=== PATIENT | male | born 1940 | race Caucasian/White ===

== ENCOUNTER → 2016-10-28 | Outpatient (CLI) | payer OTHER, BC ==
[~2016-10-28] MED LIST: ACET-1311 PO; ALBINS/ INH; ALBU0.08 INH; BACI1OIN22 OPL; BCTO EXT; BISA1SUP4 RE; CFT250 PO; EYELPAD2 OPB; GENTEAL EYE DROPS OP; HYDR-5688 PO; KETO2SHA TOP; MENTPOW4 TOP; MICO2AER TOP; MICO2AER TP; MOML PO; MULT-506 PO; PANT40TA PO; PRED1SUS3 OPL; PRNJ PO; PROM25TA9 PO; SENSICARE TOP; SIME80CH PO; SIME80CH40 PO; SKIN PREP SPRAY TOP; SKINOIN27 TOP; SODI1.1P; SODIENE PR; SULF1SUS4 PO; [UNRECOGNIZED DRUG - CODE] OPB; [UNRECOGNIZED DRUG - OTHER] OPB; [UNRECOGNIZED DRUG - OTHER] OPL; [UNRECOGNIZED DRUG - OTHER] PO; [UNRECOGNIZED DRUG - OTHER] TOP
[2016-10-28 08:36] LABS: HEMATOCRIT 44.8 % (42-52); MEAN CELL VOLUME 85.3 fL (80-100); MEAN CORPUSCULAR HEMOGLOBIN 28.4 pg (25-34); MEAN CORPUSCULAR HGB CONC 33.3 g/dl (32-36); MEAN PLATELET VOLUME 10.6 fL (7.4-10.4); PLATELET COUNT 170 K/uL (130-400); RED BLOOD COUNT 5.25 M/uL (4.7-6.1); WHITE BLOOD COUNT 7.23 K/uL (4.8-10.8)
[2016-10-28 08:38] LABS: ALT/SGPT 30 U/L (12-78); BLOOD UREA NITROGEN 7 mg/dl (7-18); CALCIUM 8.5 mg/dl (8.5-10.1); CARBON DIOXIDE 23 mmol/L (21-32); CHLORIDE 104 mmol/L (98-107); CREATININE 0.54 mg/dl (0.60-1.40); GLUCOSE 96 mg/dl (70-99); POTASSIUM 3.8 mmol/L (3.5-5.1); SODIUM 136 mmol/L (136-145)
[2016-10-28 08:49] LABS: ALB/GLOB RATIO 0.9 (0.9-2); ALKALINE PHOSPHATASE 85 U/L (45-117); AST/SGOT 24 U/L (15-37)
== END ==
LOC: C.LABCC 08:11
PROVIDERS: ATTEND Internal Medicine
DX: R11.0 Nausea (principal)

== ENCOUNTER → 2016-10-31 | Outpatient (CLI) | payer OTHER, BC ==
[2016-10-31 08:24] LABS: AMYLASE 12 U/L (25-115)
== END ==
LOC: C.LABCC 07:57
PROVIDERS: ATTEND Internal Medicine
DX: R11.0 Nausea (principal)

== ENCOUNTER → 2016-11-07 | Outpatient (CLI) | payer OTHER, BC ==
[2016-11-07 08:03] LABS: HEMATOCRIT 35.7 % (42-52); MEAN CELL VOLUME 86.7 fL (80-100); MEAN CORPUSCULAR HEMOGLOBIN 28.6 pg (25-34); MEAN CORPUSCULAR HGB CONC 33.1 g/dl (32-36); MEAN PLATELET VOLUME 10.1 fL (7.4-10.4); PLATELET COUNT 182 K/uL (130-400); RED BLOOD COUNT 4.12 M/uL (4.7-6.1); WHITE BLOOD COUNT 8.55 K/uL (4.8-10.8)
[2016-11-07 08:12] LABS: BLOOD UREA NITROGEN 19 mg/dl (7-18); BUN/CREATININE RATIO 35.6 (10-20); CALCIUM 8.6 mg/dl (8.5-10.1); CARBON DIOXIDE 25 mmol/L (21-32); CHLORIDE 107 mmol/L (98-107); CREATININE 0.54 mg/dl (0.60-1.40); GLUCOSE 90 mg/dl (70-99); POTASSIUM 3.5 mmol/L (3.5-5.1); SODIUM 143 mmol/L (136-145)
== END ==
LOC: C.LABCC 07:46
PROVIDERS: ATTEND Internal Medicine
DX: K92.1 Melena (principal)

== ENCOUNTER 2016-11-11 21:59 | Inpatient (IN) | payer OTHER, BC ==
[~2016-11-11] VITALS: Ht 180.3 cm; Wt 93.8 kg
[~2016-11-11 21:59] MED LIST changes: -ACET-1311 PO; -CFT250 PO; -EYELPAD2 OPB; -MENTPOW4 TOP; -MICO2AER TOP; -MICO2AER TP; -PANT40TA PO; -PRNJ PO; -PROM25TA9 PO; -SIME80CH PO; -SIME80CH40 PO; -SODI1.1P; -SODIENE PR; -SULF1SUS4 PO; -[UNRECOGNIZED DRUG - CODE] OPB; -[UNRECOGNIZED DRUG - OTHER] OPL
[2016-11-11] MEDS ORDERED: SODIUM CHLORIDE 0.9% 1000ML 1,000 ML IV STA ×2 (22:15)
[2016-11-11] MEDS ORDERED: ONDANSETRON INJ 2 MG/ML 2 ML VIAL IV STA (22:15)
--- NOTE | 2016-11-11 22:20 | EMERGENCY ROOM VISIT NOTE ---
History Report prepared by Gisela: Gillian Stokes Under the Supervision of: Dr. Toi Wallis D.O. First contact with patient: 22:11 Chief Complaint: ALTERED MENTAL STATUS Stated Complaint: AMS, PERIODS OF UNRESP. 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 According to nursing staff the patient was form [facility] and has been complaining of abdominal pain over the last 3 weeks along with dizziness and loss of appetite.and was found tonight to be unresponsive for 5-10 minutes tonight. According to the nursing staff the patient was also having blood in his stool in the last 3 days. The patient states that he has a headache currently. 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 Review of Systems See HPI for pertinent positives and negatives. A total of ten systems were reviewed and were otherwise negative. 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 Social History Smoking Status: Never Smoker Marital Status: Housing Status: longterm ([facility]) Occupation Status: retired Current/Historical Medications Scheduled Albuterol Sulf (Proventil 0.083% 2.5MG/3ML), 2.5 MG INH BID Artificial Tear Solution (Genteal Tears 0.1-0.3 %), 1 DROP OPB Q2H Bisacodyl (Bisacodyl Laxative), 10 MG RE DIRECTED Eyelid Cleansers (Ocusoft Lid Scrub), 1 APPLN OPB DAILY Ketoconazole (Topical) (Ketoconazole), 1 APPLN TOP MWF Magnesium Hydroxide (Milk Of Magnesia), 30 ML PO DIRECTED Menthol-Zinc Oxide (Gold Cisneros), 1 APPLN TOP BID Miconazole Nitrate (Topical) (Lotrimin Af), 1 APPLN TP BID Miconazole Nitrate (Topical) (Athletes Foot Powder Spra), 1 APPLN TOP BID Prednisolone Acetate (Ophth) (Pred Forte 1% Oph), 1 OPL DAILY Simethicone (Cvs Gas Relief), 80 MG PO BID Skin Protectants, Misc. (Aloe [place] 2-N-1 Protecti), 1 APPL TOP BID Sodium Fluoride (Dental) (Prevident 5000 Dry Mouth), Unknown Dose BID [BacitraciN OPH OINT], 1 APPLN OPL HS [Skin Prep [place]], 1 SPRAY TOP DIRECTED Scheduled PRN Acetaminophen (Tylenol), 650 MG PO Q6 PRN for MILD PAIN Acetaminophen (Tylenol), 650 MG PO Q6 PRN for Fever Albuterol Sulf (Proventil 0.083% 2.5MG/3ML), 2.5 MG INH Q6 PRN for Shortness of Breath Promethazine Hcl (Phenergan), 25 MG PO Q6H PRN for Nausea Prune Juice (Prune Juice ), 8 OZ PO DAILY PRN for NO BM IN 2 DAYS Sodium Phosphate/Biphosphate (Fleet Enema), 1 EA SD DAILY PRN for NO BM ON DAY 4 Allergies Coded Allergies: Influenza Vaccines (Verified Adverse Reaction, Severe, GUILLIAN-BARRE SYNDROME, 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) Latex1 -Allergic Contact Dermititis (Unverified Adverse Reaction, Mild, RASH, 11/11/16) Itching Physical Exam Vital Signs Date Time Temp Pulse Resp B/P Pulse Ox O2 Delivery O2 Flow Rate FiO2 11/12/16 00:23 107 19 121/81 98 Room Air 11/12/16 00:01 101/68 11/11/16 23:59 109 25 100 11/11/16 23:30 111/59 11/11/16 23:29 103 17 99 11/11/16 23:20 91/58 11/11/16 22:59 108 18 100 11/11/16 22:55 104/63 11/11/16 22:41 36.9 130 20 86/55 100 Room Air 11/11/16 22:34 111 21 76/48 100 Room Air 11/11/16 22:29 120 28 100 11/11/16 22:28 76/48 11/11/16 22:26 98 Room Air 11/11/16 22:21 122 11/11/16 22:05 86/55 Physical Exam GENERAL: Awake, alert, well-appearing, in no distress HENT: Normocephalic, atraumatic. Oropharynx unremarkable. EYES: Normal conjunctiva. Sclera non-icteric. NECK: Supple. No nuchal rigidity. FROM. No JVD. RESPIRATORY: Clear to auscultation. CARDIAC: Regular rate, normal rhythm. Extremities warm and well perfused. Pulses equal. ABDOMEN: Soft, non-distended. No tenderness to palpation. No rebound or guarding. No masses. RECTAL: Deferred. MUSCULOSKELETAL: Chest examination reveals no tenderness. The back is symmetrical on inspection without obvious abnormality. There is no CVA tenderness to palpation. No joint edema. LOWER EXTREMITIES: Calves are equal size bilaterally and non-tender. No edema. No discoloration. NEURO: Normal sensorium. No sensory or motor deficits noted. SKIN: No rash or jaundice noted, diaphoretic. RECTAL: large amount of maroon clot blood, actively bleeding. Medical Decision & Procedures Laboratory Results 11/11/16 22:35 Red Blood Count 3.54, Mean Corpuscular Volume 86.4, Mean Corpuscular Hemoglobin 29.4, Mean Corpuscular Hemoglobin Concent 34.0, Mean Platelet Volume 9.9, Neutrophils (%) (Auto) 79.2, Lymphocytes (%) (Auto) 13.3, Monocytes (%) (Auto) 6.6, Eosinophils (%) (Auto) 0.3, Basophils (%) (Auto) 0.3, Neutrophils # (Auto) 9.44, Lymphocytes # (Auto) 1.58, Monocytes # (Auto) 0.79, Eosinophils # (Auto) 0.03, Basophils # (Auto) 0.03 11/11/16 22:35 Test 11/11/16 22:30 11/11/16 22:35 Urine Color YELLOW Urine Appearance TURBID (CLEAR) Urine pH 6.5 (4.5-7.5) Urine Specific [place] 1.026 (1.000-1.030) Urine Protein 2+ (NEG) Urine Glucose (UA) TRACE (NEG) Urine Ketones 2+ (NEG) Urine Occult Blood 1+ (NEG) Urine Nitrite POS (NEG) Urine Bilirubin NEG (NEG) Urine Urobilinogen NEG (NEG) Urine Leukocyte Esterase LARGE (NEG) Urine WBC (Auto) >30 /hpf (0-5) Urine RBC (Auto) 0-4 /hpf (0-4) Urine Hyaline Casts (Auto) 1-5 /lpf (0-5) Urine Epithelial Cells (Auto) 10-20 /lpf (0-5) Urine Bacteria (Auto) 2+ (NEG) Urine Pathogenic Casts /lpf (0) Urine Mucus PRESENT (NONE PRSENT) White Blood Count 11.90 K/uL (4.8-10.8) Red Blood Count 3.54 M/uL (4.7-6.1) Hemoglobin 10.4 g/dL (14.0-18.0) Hematocrit 30.6 % (42-52) Mean Corpuscular Volume 86.4 fL (80-100) Mean Corpuscular Hemoglobin 29.4 pg (25-34) Mean Corpuscular Hemoglobin Concent 34.0 g/dl (32-36) Platelet Count 229 K/uL (130-400) Mean Platelet Volume 9.9 fL (7.4-10.4) Neutrophils (%) (Auto) 79.2 % Lymphocytes (%) (Auto) 13.3 % Monocytes (%) (Auto) 6.6 % Eosinophils (%) (Auto) 0.3 % Basophils (%) (Auto) 0.3 % Neutrophils # (Auto) 9.44 K/uL (1.4-6.5) Lymphocytes # (Auto) 1.58 K/uL (1.2-3.4) Monocytes # (Auto) 0.79 K/uL (0.11-0.59) Eosinophils # (Auto) 0.03 K/uL (0-0.5) Basophils # (Auto) 0.03 K/uL (0-0.2) RDW Standard Deviation 46.9 fL (36.4-46.3) RDW Coefficient of Variation 15.0 % (11.5-14.5) Immature Granulocyte % (Auto) 0.3 % Immature Granulocyte # (Auto) 0.03 K/uL (0.00-0.02) Prothrombin Time 12.0 SECONDS (9.0-12.0) Prothromb Time International Ratio 1.1 (0.9-1.1) Activated Partial Thromboplast Time 25.6 SECONDS (21.0-31.0) Partial Thromboplastin Ratio 1.0 Anion Gap 10.0 mmol/L (3-11) Est Creatinine Clear Calc Drug Dose 81.0 ml/min Estimated GFR () 97.6 Estimated GFR (Non- 84.2 BUN/Creatinine Ratio 33.8 (10-20) Calcium Level 8.3 mg/dl (8.5-10.1) Total Bilirubin 0.4 mg/dl (0.2-1) Direct Bilirubin 0.1 mg/dl (0-0.2) Aspartate Amino Transf (AST/SGOT) 23 U/L (15-37) Alanine Aminotransferase (ALT/SGPT) 28 U/L (12-78) Alkaline Phosphatase 65 U/L (45-117) Total Protein 6.2 gm/dl (6.4-8.2) Albumin 3.0 gm/dl (3.4-5.0) Lipase 50 U/L (73-393) Laboratory results reviewed by me Medications Administered Medications (Trade) Dose Ordered Sig/Sabine Route Start Time Stop Time Status Last Admin Dose Admin Sodium Chloride (Nss 1000ml) 1,000 ml @ 999 mls/hr Q1H1M STAT IV 11/11/16 22:15 11/11/16 23:15 DC 11/11/16 22:28 999 MLS/HR Ondansetron HCl 4 mg 4 mg NOW STAT IV 11/11/16 22:15 11/11/16 22:18 DC 11/11/16 22:51 4 MG Sodium Chloride 1,000 ml @ 999 mls/hr Q1H1M STAT IV 11/11/16 22:15 11/11/16 23:15 DC 11/11/16 22:28 999 MLS/HR Pantoprazole Sodium 80 mg/ Dextrose 120 ml @ 480 mls/hr NOW ONCE IV 11/11/16 22:45 11/11/16 22:59 DC 11/11/16 22:56 480 MLS/HR Pantoprazole Sodium/Dextrose (Protonix Inj/D5 100ml) 100 ml @ 20 mls/hr Q5H IV 11/11/16 23:00 11/12/16 03:59 11/11/16 23:19 20 MLS/HR ECG Indication: altered mental status Rate (beats per minute): 114 Rhythm: sinus tachycardia Findings: other (Poor R wave progression precordnation, no obvious ST elvation , normal axis.) ED Course 2210: The patient was evaluated in room B11B. A complete history and physical exam was performed. 2214: Ordered Pantoprazole Sodium 1 ea Iv, Sodium Chloride 1,000 ml @ 999 mls/ hr IV, Zofran Inj 4 mg IV, Sodium Chloride 1,000 ml @ 999 mls/hr IV. 5: Ordered Pantoprazole Sodium 80 mg/ Dextrose 120 ml @ 480 mls/hr IV. 2300: Ordered Pantoprazole Sodium 40 mg/ Dextrose 100 ml @ 20 mls/hr Iv. []: I discussed the case with Dr. Chandler JAMIL Hospitalist. He agreed to evaluate the patient for further evaluation and management. Medical Decision Differential diagnoses include but are not limited to; Upper GI bleed, Lower GI bleed, diverticular bleed, coagulopathy, dehydration, hemorrhagic shock . Patient started on IV fluids, patient started on IV Protonix as well as a Protonix drip. Patient's mental status was unchanged on emergency department evaluation. The case is discussed with the hospitalist for admission. Consults Time Called: 2300 Consulting Physician: Dr. Chandler JAMIL Hospitalist I discussed the case with Dr. Chandler JAMIL Hospitalist. He agreed to evaluate the patient for further evaluation and management. Impression Primary Impression: Altered mental status Additional Impression: Lower GI bleed Critical Care Critical care time is 35 minutes which includes evaluation patient evaluation labs discussion with hospitalist. Scribe Attestation The scribe's documentation has been prepared under my direction and personally reviewed by me in its entirety. I confirm that the note above accurately reflects all work, treatment, procedures, and medical decision making performed by me. Departure Information Dispostion Being Evaluated By Hospitalist Referrals [facility] (PCP) Patient Instructions My [facility] Problem Qualifiers Primary Impression: Altered mental status Altered mental status type: unspecified Qualified Codes: R41.82 - Altered mental status, unspecified
[2016-11-11] MEDS ORDERED: PROM25TA9 PO (22:41)
[2016-11-11] MEDS ORDERED: MICO2AER TP (22:41)
[2016-11-11] MEDS ORDERED: ACET-1311 PO (22:41)
[2016-11-11] MEDS ORDERED: [UNRECOGNIZED DRUG - OTHER] OPL (22:41)
[2016-11-11] MEDS ORDERED: [UNRECOGNIZED DRUG - CODE] OPB (22:41)
[2016-11-11] MEDS ORDERED: SODIENE PR (22:41)
[2016-11-11] MEDS ORDERED: MICO2AER TOP (22:41)
[2016-11-11] MEDS ORDERED: PRNJ PO (22:41)
[2016-11-11] MEDS ORDERED: KETO2SHA TOP (22:41)
[2016-11-11] MEDS ORDERED: SIME80CH40 PO (22:41)
[2016-11-11] MEDS ORDERED: SODI1.1P (22:41)
[2016-11-11] MEDS ORDERED: MENTPOW4 TOP (22:41)
[2016-11-11] MEDS ORDERED: EYELPAD2 OPB (22:41)
[2016-11-11] MEDS ORDERED: ALBINS/ INH (22:41)
[2016-11-11 22:43] LABS: HEMATOCRIT 30.6 % (42-52); MEAN CELL VOLUME 86.4 fL (80-100); MEAN CORPUSCULAR HEMOGLOBIN 29.4 pg (25-34); MEAN PLATELET VOLUME 9.9 fL (7.4-10.4); PLATELET COUNT 229 K/uL (130-400); RED BLOOD COUNT 3.54 M/uL (4.7-6.1)
[2016-11-11 22:45] LABS: URINE APPEARANCE TURBID (CLEAR); URINE BILIRUBIN NEG (NEG); URINE COLOR YELLOW; URINE NITRITE POS (NEG); URINE PH 6.5 (4.5-7.5); URINE SPECIFIC GRAVITY 1.026 (1.000-1.030); UROBILINOGEN NEG (NEG)
[2016-11-11] MEDS ORDERED: PANTOprazole INJ 80 MG in DEXTROSE 5% 100ML IV ONE (22:45)
[2016-11-11 22:47] LABS: MANUAL MICROSCOPIC REQUIRED? NO; REVIEW REQ? YES
[2016-11-11 22:53] LABS: INR 1.1 (0.9-1.1)
[2016-11-11 22:55] LABS: URINE MUCUS PRESENT (NONE PRSENT)
[2016-11-11] MEDS ORDERED: PANTOprazole INJ 40 MG in DEXTROSE 5% 100ML IV SCH (23:00)
[2016-11-11 23:02] LABS: BUN/CREATININE RATIO 33.8 (10-20); CALCIUM 8.3 mg/dl (8.5-10.1); CREATININE 0.89 mg/dl (0.60-1.40); POTASSIUM 3.9 mmol/L (3.5-5.1)
[2016-11-11 23:04] LABS: BASO % 0.3 %; BASO ABS # 0.03 K/uL (0-0.2); COMPLETE YES; EOS % 0.3 %; IG% 0.3 %; LYMPH % 13.3 %; LYMPH ABS # 1.58 K/uL (1.2-3.4); MONO % 6.6 %; NEUT % 79.2 %
[2016-11-12] VITALS (13 sets, daily range): BP systolic 92–111; BP diastolic 51–72; PULSE 93–110; TEMP 36.3–37; O2SAT 96–100; Ht 180.3 cm; Wt 93.8 kg
[2016-11-12] MEDS ORDERED: ONDANSETRON INJ 2 MG/ML 2 ML VIAL IV PRN
[2016-11-12] MEDS ORDERED: MAGNESIUM HYDROXIDE SUSP 30 ML UDC PO PRN
[2016-11-12] MEDS ORDERED: POLYETHYLENE (MIRALAX) 17 GM PACK PO PRN
[2016-11-12] MEDS ORDERED: ACETAMINOPHEN 325 MG TAB PO PRN
[2016-11-12] MEDS ORDERED: ALUMINUM/MAGNESIUM/SIMETH (MAALOX MAX) 30 ML UDC PO PRN
[2016-11-12] MEDS ORDERED: MoRPHine SULFATE 2 MG/ML CARP IV PRN
[2016-11-12] MEDS ORDERED: NITROGLYCERIN 0.4 MG SL PER TAB CHARGE SL PRN
--- NOTE | 2016-11-12 | History and Physical ---
History & Physical Date & Time of Service: Nov 11, 2016 at 23:58 Chief Complaint: Ams, Periods Of Unresp Primary Care Physician: Lex Wilcox History of Present Illness Source: patient, hospital records Mr Kris Lan is a 76 yo M with history of Guillain-[place] syndrome contributing to incomplete quadriparesis, asthma, HTN, and GERD who resides at [facility] and was found to be unresponsive for 5 to 10 minutes earlier today. He was sitting in his chair in his room, and reports he felt well after supper but then suddenly felt very weak. He reports he has had GI issues for about 3 weeks, where he feels nauseated intermittently, and he has also had blood in his stool the last three days. He was meant to have an EGD on 11/12/16 ( today). He reports he has had multiple surgeries in the past from getting a tracheostomy due to machine long goods helper intubation with the GBS, which was then reversed, but since then has had a poor swallow. He is generally bed /chair bound. He reports he had a headache earlier which has resolved. In the ED, he was passing large dark clots per rectum. His hemoccult was positive. He was hypotensive and received 2L fluid bolus and was started on a Protonix drip. 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) Latex1 -Allergic Contact Dermititis (Unverified Adverse Reaction, Mild, RASH, 3/14/17) Itching Home Medications Scheduled Albuterol Sulf (Proventil 0.083% 2.5MG/3ML), 2.5 MG INH BID Artificial Tear Solution (Genteal Tears 0.1-0.3 %), 1 DROP OPB Q2H Bisacodyl (Bisacodyl Laxative), 10 MG RE DIRECTED Eyelid Cleansers (Ocusoft Lid Scrub), 1 APPLN OPB DAILY Ketoconazole (Topical) (Ketoconazole), 1 APPLN TOP MWF Magnesium Hydroxide (Milk Of Magnesia), 30 ML PO DIRECTED Menthol-Zinc Oxide (Gold Cisneros), 1 APPLN TOP BID Miconazole Nitrate (Topical) (Lotrimin Af), 1 APPLN TP BID Miconazole Nitrate (Topical) (Athletes Foot Powder Spra), 1 APPLN TOP BID Prednisolone Acetate (Ophth) (Pred Forte 1% Oph), 1 OPL DAILY Simethicone (Cvs Gas Relief), 80 MG PO BID Skin Protectants, Misc. (Aloe [place] 2-N-1 Protecti), 1 APPL TOP BID Sodium Fluoride (Dental) (Prevident 5000 Dry Mouth), Unknown Dose BID [BacitraciN OPH OINT], 1 APPLN OPL HS [Skin Prep [place]], 1 SPRAY TOP DIRECTED Scheduled PRN Acetaminophen (Tylenol), 650 MG PO Q6 PRN for MILD PAIN Acetaminophen (Tylenol), 650 MG PO Q6 PRN for Fever Albuterol Sulf (Proventil 0.083% 2.5MG/3ML), 2.5 MG INH Q6 PRN for Shortness of Breath Promethazine Hcl (Phenergan), 25 MG PO Q6H PRN for Nausea Prune Juice (Prune Juice ), 8 OZ PO DAILY PRN for NO BM IN 2 DAYS Sodium Phosphate/Biphosphate (Fleet Enema), 1 EA [place] DAILY PRN for NO BM ON DAY 4 Review of Systems See HPI for pertinent positives & negatives. A total of 10 systems reviewed and were otherwise negative. Physical Exam Vital Signs Date Time Temp Pulse Resp B/P Pulse Ox O2 Delivery O2 Flow Rate FiO2 11/11/16 22:41 36.9 130 20 86/55 100 Room Air 11/11/16 22:34 111 21 76/48 100 Room Air 11/11/16 22:26 98 Room Air 11/11/16 22:21 122 General Appearance: WD/WN, no apparent distress, + pertinent finding ( quadriparetic) Head: normocephalic, atraumatic Eyes: + pertinent finding (left eyelid does not open, right eye normal) ENT: normal ENT inspection, hearing grossly normal Neck: supple, no JVD Respiratory/Chest: lungs clear, normal breath sounds, no respiratory distress, + wheezing (audible wheeze when speaks) Cardiovascular: regular rate, rhythm, normal peripheral pulses, + systolic murmur Abdomen/GI: normal bowel sounds, non tender, soft Back: no CVA tenderness Extremities/Musculoskelatal: no pedal edema Neurologic/Psych: alert, normal mood/affect, oriented x 3 Skin: warm/dry, no rash Diagnostics Laboratory Results Results Past 24 Hours Test 11/11/16 22:30 11/11/16 22:35 Range/Units Urine Color YELLOW Urine Appearance TURBID CLEAR Urine pH 6.5 4.5-7.5 Urine Specific [place] 1.026 1.000-1.030 Urine Protein 2+ NEG Urine Glucose (UA) TRACE NEG Urine Ketones 2+ NEG Urine Occult Blood 1+ NEG Urine Nitrite POS NEG Urine Bilirubin NEG NEG Urine Urobilinogen NEG NEG Urine Leukocyte Esterase LARGE NEG Urine WBC (Auto) >30 0-5 /hpf Urine RBC (Auto) 0-4 0-4 /hpf Urine Hyaline Casts (Auto) 1-5 0-5 /lpf Urine Epithelial Cells (Auto) 10-20 0-5 /lpf Urine Bacteria (Auto) 2+ NEG Urine Pathogenic Casts 0 /lpf Urine Mucus PRESENT NONE PRSENT White Blood Count 11.90 4.8-10.8 K/uL Red Blood Count 3.54 4.7-6.1 M/uL Hemoglobin 10.4 14.0-18.0 g/dL Hematocrit 30.6 42-52 % Mean Corpuscular Volume 86.4 80-100 fL Mean Corpuscular Hemoglobin 29.4 25-34 pg Mean Corpuscular Hemoglobin Concent 34.0 32-36 g/dl Platelet Count 229 130-400 K/uL Mean Platelet Volume 9.9 7.4-10.4 fL Neutrophils (%) (Auto) 79.2 % Lymphocytes (%) (Auto) 13.3 % Monocytes (%) (Auto) 6.6 % Eosinophils (%) (Auto) 0.3 % Basophils (%) (Auto) 0.3 % Neutrophils # (Auto) 9.44 1.4-6.5 K/uL Lymphocytes # (Auto) 1.58 1.2-3.4 K/uL Monocytes # (Auto) 0.79 0.11-0.59 K/uL Eosinophils # (Auto) 0.03 0-0.5 K/uL Basophils # (Auto) 0.03 0-0.2 K/uL RDW Standard Deviation 46.9 36.4-46.3 fL RDW Coefficient of Variation 15.0 11.5-14.5 % Immature Granulocyte % (Auto) 0.3 % Immature Granulocyte # (Auto) 0.03 0.00-0.02 K/uL Prothrombin Time 12.0 9.0-12.0 SECONDS Prothromb Time International Ratio 1.1 0.9-1.1 Activated Partial Thromboplast Time 25.6 21.0-31.0 SECONDS Partial Thromboplastin Ratio 1.0 Sodium Level 144 136-145 mmol/L Potassium Level 3.9 3.5-5.1 mmol/L Chloride Level 109 98-107 mmol/L Carbon Dioxide Level 25 21-32 mmol/L Anion Gap 10.0 3-11 mmol/L Blood Urea Nitrogen 30 7-18 mg/dl Creatinine 0.89 0.60-1.40 mg/dl Est Creatinine Clear Calc Drug Dose 81.0 ml/min Estimated GFR () 97.6 Estimated GFR (Non- 84.2 BUN/Creatinine Ratio 33.8 10-20 Random Glucose 144 70-99 mg/dl Calcium Level 8.3 8.5-10.1 mg/dl Total Bilirubin 0.4 0.2-1 mg/dl Direct Bilirubin 0.1 0-0.2 mg/dl Aspartate Amino Transf (AST/SGOT) 23 15-37 U/L Alanine Aminotransferase (ALT/SGPT) 28 12-78 U/L Alkaline Phosphatase 65 45-117 U/L Total Protein 6.2 6.4-8.2 gm/dl Albumin 3.0 3.4-5.0 gm/dl Lipase 50 73-393 U/L EKG HR 115bpm, no acute ST elevation, Septal changes but looks similar to EKG of 2015 Impression Assessment and Plan 76 yo quadriplegic male who has a 3 week history of GI symptoms, with 3 days of melena - likely Upper GI bleed, which caused anemia / vasovagal syncope. Cause of bleed likely from an ulcer. Upper GI bleed - Continue Protonix drip - Will consult GI for EGD today - NPO with IV fluids Hypotension - Improved with IV fluids - Will continue maintenance fluids for now - Telemetry monitoring Headache - Tylenol PRN Asthma - Continue inhalers / nebulizers as needed VTE: SCDs CODE STATUS: DNR Plan discussed with Garima (works here as Sanitary Engineer, is pts daughter in law), pts son and daughter are coming in Level of Care Telemetry Resuscitation Status DO NOT RESUSCITATE VTE Prophylaxis VTE Risk Assessment Done? Y/N: Yes Risk Level: Low Given or contraindicated: Contraindicated Note Pt seen/examined independently - orders and case discussed with resident and pt Presented with episode of unresponsiveness and has had a GI bleed for likely 3 days Is AAO at time of admission Borderline hypotension in ER resolved with a fluid bolus OE AAO S1,2 R CTA NT, ND Pallor present - voice horse at baseline - neuromuscular weakness at baseline P: Hb Q6h Transfuse PRN GI consult Unclear what lead to unresponsive episode - may have been due to sudden volume loss and hypoperfusion Pt will be monitored on telemetry Verbal consent for transfusion provided by pt who cannot physically sign for - witnessed by oil and gas drafter Tracking Resident Involvement: Resident Care Provided Care Provided: Adult Hospital Medicine
[2016-11-12] MEDS ORDERED: ALBUTEROL 0.083% NEBU SOLN 3 ML VIAL INH PRN (00:30)
[2016-11-12] MEDS ORDERED: PROMETHAZINE HCL 25 MG TAB PO PRN (00:30)
[2016-11-12] MEDS ORDERED: NITROGLYCERIN OINT 2% 1GM PACKET EXT SCH (01:00)
[2016-11-12] MEDS ORDERED: NURSING VERBAL MED ORDER ONE (01:15)
[2016-11-12] MEDS: SODIUM CHLOR 0.45% + 20MEQ KCL 1,000 ML IV SCH ×3 (01:19→19:19)
[2016-11-12] MEDS: ARTIFICIAL TEARS OP SOLN OPB SCH ×22 (01:19→20:52)
[2016-11-12] MEDS: PANTOprazole INJ 40 MG in DEXTROSE 5% 100ML IV SCH ×4 (03:35→20:01)
[2016-11-12 07:34] LABS: BASO % 0.2 %; BASO ABS # 0.02 K/uL (0-0.2); EOS % 0.5 %; HEMATOCRIT 26.1 % (42-52); IG% 0.3 %; LYMPH % 31.2 %; LYMPH ABS # 2.72 K/uL (1.2-3.4); MEAN CELL VOLUME 87.6 fL (80-100); MEAN CORPUSCULAR HEMOGLOBIN 29.2 pg (25-34); MEAN CORPUSCULAR HGB CONC 33.3 g/dl (32-36); MEAN PLATELET VOLUME 10.4 fL (7.4-10.4); MONO % 7.9 %; NEUT % 59.9 %; PLATELET COUNT 184 K/uL (130-400); RED BLOOD COUNT 2.98 M/uL (4.7-6.1); WHITE BLOOD COUNT 8.72 K/uL (4.8-10.8)
[2016-11-12] MEDS: ALBUTEROL 0.083% NEBU SOLN 3 ML VIAL INH SCH ×2 (07:41→19:06)
[2016-11-12 08:08] LABS: CALCIUM 7.7 mg/dl (8.5-10.1); CREATININE 0.67 mg/dl (0.60-1.40); POTASSIUM 3.8 mmol/L (3.5-5.1)
[2016-11-12 08:11] LABS: ALB/GLOB RATIO 0.9 (0.9-2)
[2016-11-12] MEDS: KETOCONAZOLE EXT SCH (08:28)
[2016-11-12] MEDS: PrednisoLONE ACET 1% OP SUSP 5 ML BTL OPL SCH (08:29)
[2016-11-12] MEDS: SIMETHICONE 80 MG CHEW PO SCH ×2 (08:29→20:50)
[2016-11-12] MEDS ORDERED: MICONAZOLE NITRATE TOP SCH (09:00)
[2016-11-12] MEDS ORDERED: [UNRECOGNIZED DRUG - OTHER] OPB SCH (09:00)
[2016-11-12 09:01] LABS: COMPLETE YES
--- NOTE | 2016-11-12 11:05 | Gastrointestinal Consultation ---
Gastrointestinal Consultation Date of Consultation: Nov 12, 2016 Attending Physician: Beth Consulting Physician: Agustin Reason for Consultation: Melena, hematochezia, anemia History of Present Illness Patient is a 76 year old male with a progressive neurological disorder (listed as Guillian-Dayton) who has a result has "incomplete quadripalegia" and is a resident at [facility]. He also carries a hx of tracheostomy on three different occasions, asthma, COPD, HTN, PVD. He is able to provide his history and tells me that he has had "stomach upset, GI problems" for about 3 weeks. Three days ago, his BMs became black, but with some red blood as well (he believes this to be the case but is unsure as he doesn't see his BMs and his care providers didn't talk to him about this). This hx of 3 days of blood in stools was mentioned in his H&P. He was scheduled to undergo EGD for melena as an OP today. However, yesterday, he was found to be non responsive and hypotensive for about 5 - 10 minutes and was transferred here for admission. On arrival, he has acute blood loss anemia. Hb a month ago was 14.9, yesterday on arrival it was 10.4 and this morning it was 8.7. He has not received blood transfusion. BUN was mildly elevated at 30 on arrival and is 28 today, w/o a compensatory rise in creatinine. He has not had any emesis prior to or during admission and he has not had any BMs since arrival. Initially on arrival he was hypotensive but this resolved with a 2 L fluid bolus. He is also on a Protonix drip. Past Medical/Surgical History Medical Problems: (1) Lower GI bleed Status: Acute Past Medical History: 1. Asthma 2. Chronic incomplete quadriplegia 3. COPD 4. GERD 5. Guillain-Dayton like syndrome 6. HTN 7. PVD 8. Rectal Bleeding. 9. Vocal cord paralysis Past Surgical History: 1. Tracheostomy Family History Patient reports no known family medical history. Social History Smoking Status: Never Smoker Marital Status: Housing Status: [facility] ([employer]) Occupation Status: retired Allergies Coded Allergies: Influenza Vaccines (Verified Adverse Reaction, Severe, GUILLIAN-BARRE SYNDROME, 11/12/16) Latex1 -Allergic Contact Dermititis (Unverified Adverse Reaction, Mild, RASH, 11/12/16) Itching Current Medications Home Meds and Scripts Medications Dose Route/Sig Max Daily Dose Days Date Category Dose Instructions Athletes Foot Powder Spra (Miconazole Nitrate (Topical)) 2 % Aer 1 Appln TOP BID 11/11/16 Reported APPLY TO BILATERAL FEET Lotrimin Af (Miconazole Nitrate (Topical)) 2 % Aer 1 Appln TP BID 11/11/16 Reported APPLY TOPICALLY TO BILATERAL FEET Ketoconazole (Ketoconazole (Topical)) 2 % Sha 1 Appln TOP MWF 30 11/11/16 Reported APPLY TO SCALP Gold Cisneros (Menthol-Zinc Oxide) 1 Pow Pow 1 Appln TOP BID 11/11/16 Reported APPLY TOPICALLY TO SKIN LESION ON ABDOMEN, RIGHT UPPER QUADRANT BID Cvs Gas Relief (Simethicone) 80 Mg Chw 80 Mg PO BID 11/11/16 Reported Prevident 5000 Dry Mouth (Sodium Fluoride (Dental)) 1.1 % Pst Unknown Dose BID 11/11/16 Reported Ocusoft Lid Scrub (Eyelid Cleansers) 1 Pad Pad 1 Appln OPB DAILY 11/11/16 Reported GENTLY SCRUB BOTH EYELIDS DAILY @1030 Fleet Enema (Sodium Phosphate/Biphosphate) Rhiannon 1 Ea [place] DAILY PRN 11/11/16 Reported Prune Juice (Prune) Liqd 8 Oz PO DAILY PRN 11/11/16 Reported Proventil 0.083% 2.5MG/3ML (Albuterol Sulf) 2.5 Mg/3 Ml Nebu 2.5 Mg INH Q6 PRN 11/11/16 Reported Tylenol (Acetaminophen) 325 Mg Tab 650 Mg PO Q6 PRN 11/11/16 Reported Tylenol (Acetaminophen) 325 Mg Tab 650 Mg PO Q6 PRN 11/11/16 Reported Phenergan (Promethazine HCl) 25 Mg Tab 25 Mg PO Q6H PRN 11/11/16 Reported Genteal Tears 0.1-0.3 % (Artificial Tear Solution) 1 Kaylene Kaylene 1 Drop OPB Q2H 11/11/16 Reported [BacitraciN OPH OINT] 1 Appln OPL HS 11/11/16 Reported APPLY 1/2" RIBBON TOPICALLY TO LEFT EYE AT BEDTIME Aloe Orange 2-N-1 Protecti (Skin Protectants, Misc.) 1 Oin Oin 1 Appl TOP BID 09/13/14 Reported [Skin Prep Isabel] 1 Isabel TOP DIRECTED 09/13/14 Reported Milk Of Magnesia (Magnesium Hydroxide) 30 Ml Susp 30 Ml PO DIRECTED 09/13/14 Reported NO BM ON DAY 3 Bisacodyl Laxative (Bisacodyl) 10 Mg Sup 10 Mg RE DIRECTED 09/13/14 Reported NO BM ON DAY 3 Pred Forte 1% Oph (Prednisolone Acetate (Ophth)) 1 % Jessica 1 OPL DAILY 07/26/12 Reported Proventil 0.083% 2.5MG/3ML (Albuterol Sulf) 2.5 Mg/3 Ml Nebu 2.5 Mg INH BID 07/26/12 Reported Review of Systems Constitutional: No chills, No fever, No sweats, No weakness, No weight loss Eyes: No eye pain, No redness ENT: No pain on swallowing, No sore throat, No trouble swallowing Respiratory: No cough, No dyspnea on exertion, No shortness of breath, No wheezing Cardiac: No chest pain, No edema, No palpitations Abdomen: + GI bleeding, + nausea, + pain, + see HPI, No constipation, No diarrhea, No vomiting Neuro: No balance problems, No memory loss, No numbness/tingling, No vertigo, No weakness Psych: No anxiety, No depression symptoms, No insomnia Heme: No abnormal bleeding/bruising, No night sweats Endo: No excessive thirst, No excessive urination Skin: No itch, No jaundice, No new/changing skin lesions, No rash Physical Exam Date Time Temp Pulse Resp B/P Pulse Ox O2 Delivery O2 Flow Rate FiO2 11/12/16 07:14 36.3 93 16 111/72 96 6.0 11/12/16 07:10 110 18 97 Room Air 11/12/16 04:00 97 Room Air 11/12/16 03:29 37.0 110 22 92/59 97 Room Air 11/12/16 01:04 36.7 106 20 105/67 98 Room Air 11/12/16 00:23 107 19 121/81 98 Room Air 11/12/16 00:01 101/68 11/11/16 23:59 109 25 100 11/11/16 23:30 111/59 11/11/16 23:29 103 17 99 11/11/16 23:20 91/58 11/11/16 22:59 108 18 100 11/11/16 22:55 104/63 11/11/16 22:41 36.9 130 20 86/55 100 Room Air 11/11/16 22:34 111 21 76/48 100 Room Air 11/11/16 22:29 120 28 100 11/11/16 22:28 76/48 11/11/16 22:26 98 Room Air 11/11/16 22:21 122 11/11/16 22:05 86/55 General Appearance: no apparent distress Eyes: normal inspection, EOMI Neck: supple, no adenopathy, thyroid normal Respiratory/Chest: chest non-tender, lungs clear, normal breath sounds, no accessory muscle use Cardiovascular: regular rate, rhythm, no JVD, no murmur Abdomen: soft, no organomegaly, + abnormal bowel sounds (hyperactive), + tenderness (mild, diffuse) Extremities: normal inspection, no pedal edema, normal capillary refill Neurologic/Psych: alert, normal mood/affect, oriented x 3 Skin: normal color, no jaundice, warm/dry, no rash Laboratory Results Last 24 Hours Test 11/11/16 22:30 11/11/16 22:35 11/12/16 03:17 11/12/16 06:57 Urine Color YELLOW Urine Appearance TURBID Urine pH 6.5 Urine Specific [place] 1.026 Urine Protein 2+ Urine Glucose (UA) TRACE Urine Ketones 2+ Urine Occult Blood 1+ Urine Nitrite POS Urine Bilirubin NEG Urine Urobilinogen NEG Urine Leukocyte Esterase LARGE Urine WBC (Auto) >30 /hpf Urine RBC (Auto) 0-4 /hpf Urine Hyaline Casts (Auto) 1-5 /lpf Urine Epithelial Cells (Auto) 10-20 /lpf Urine Bacteria (Auto) 2+ Urine Pathogenic Casts /lpf Urine Mucus PRESENT White Blood Count 11.90 K/uL 8.72 K/uL Red Blood Count 3.54 M/uL 2.98 M/uL Hemoglobin 10.4 g/dL 9.5 g/dL 8.7 g/dL Hematocrit 30.6 % 26.1 % Mean Corpuscular Volume 86.4 fL 87.6 fL Mean Corpuscular Hemoglobin 29.4 pg 29.2 pg Mean Corpuscular Hemoglobin Concent 34.0 g/dl 33.3 g/dl Platelet Count 229 K/uL 184 K/uL Mean Platelet Volume 9.9 fL 10.4 fL Neutrophils (%) (Auto) 79.2 % 59.9 % Lymphocytes (%) (Auto) 13.3 % 31.2 % Monocytes (%) (Auto) 6.6 % 7.9 % Eosinophils (%) (Auto) 0.3 % 0.5 % Basophils (%) (Auto) 0.3 % 0.2 % Neutrophils # (Auto) 9.44 K/uL 5.22 K/uL Lymphocytes # (Auto) 1.58 K/uL 2.72 K/uL Monocytes # (Auto) 0.79 K/uL 0.69 K/uL Eosinophils # (Auto) 0.03 K/uL 0.04 K/uL Basophils # (Auto) 0.03 K/uL 0.02 K/uL RDW Standard Deviation 46.9 fL 48.5 fL RDW Coefficient of Variation 15.0 % 15.3 % Immature Granulocyte % (Auto) 0.3 % 0.3 % Immature Granulocyte # (Auto) 0.03 K/uL 0.03 K/uL Prothrombin Time 12.0 SECONDS Prothromb Time International Ratio 1.1 Activated Partial Thromboplast Time 25.6 SECONDS Partial Thromboplastin Ratio 1.0 Sodium Level 144 mmol/L 145 mmol/L Potassium Level 3.9 mmol/L 3.8 mmol/L Chloride Level 109 mmol/L 112 mmol/L Carbon Dioxide Level 25 mmol/L 24 mmol/L Anion Gap 10.0 mmol/L 9.0 mmol/L Blood Urea Nitrogen 30 mg/dl 28 mg/dl Creatinine 0.89 mg/dl 0.67 mg/dl Est Creatinine Clear Calc Drug Dose 81.0 ml/min 112.5 ml/min Estimated GFR () 97.6 109.7 Estimated GFR (Non- 84.2 94.7 BUN/Creatinine Ratio 33.8 41.0 Random Glucose 144 mg/dl 87 mg/dl Calcium Level 8.3 mg/dl 7.7 mg/dl Total Bilirubin 0.4 mg/dl 0.3 mg/dl Direct Bilirubin 0.1 mg/dl Aspartate Amino Transf (AST/SGOT) 23 U/L 20 U/L Alanine Aminotransferase (ALT/SGPT) 28 U/L 23 U/L Alkaline Phosphatase 65 U/L 55 U/L Total Protein 6.2 gm/dl 5.4 gm/dl Albumin 3.0 gm/dl 2.6 gm/dl Lipase 50 U/L Red Blood Cell Morphology Unremarkable Globulin 2.8 gm/dl Albumin/Globulin Ratio 0.9 Impression Patient is a 76 year old male with melena, hematochezia, acute blood loss anemia. Plan 1. EGD today. 2. Dependent on results of the EGD, will consider colonoscopy. 3. Continue Protonix drip. 4. Further recommendations to follow EGD. Addendum after EGD with large duodenal ulcer: 1. Recommend Stool for H Pylori. 2. 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 3. Advance diet tomorrow. OK for d/c if hgb stable x 3 days 4. GI will sign off, please call with questions. Attg addendum: I interviewed and examined pt, reviewed chart and labs, agree with plan as above.
[2016-11-12] MEDS ORDERED: LIDOCAINE HCL 2% 2 ML VIAL (20MG/ML) ONE (11:07)
[2016-11-12] MEDS ORDERED: PROPOFOL IV EMULSION 10 MG/ML 20 ML VIAL IV ONE (11:07)
[2016-11-12] MEDS ORDERED: KETAMINE HCL INJ 50 MG/ML 10 ML VIAL ONE (11:08)
--- NOTE | 2016-11-12 11:56 | GI REPORT ---
Procedure Date: 11/12/2016 11:27 AM Procedure: Upper GI endoscopy Indications: Acute post hemorrhagic anemia Medicines: See the Anesthesia note for documentation of the administered medications Complications: No immediate complications. Estimated Blood Loss: Estimated blood loss: none. Procedure: Pre-Anesthesia Assessment: - ASA Grade Assessment: IV - A patient with severe systemic disease that is a constant threat to life. After obtaining informed consent, the endoscope was passed under direct vision. Throughout the procedure, the patient's blood pressure, pulse, and oxygen saturations were monitored continuously. The On-site loaner was introduced through the mouth, and advanced to the second part of duodenum. The upper GI endoscopy was accomplished without difficulty. The patient tolerated the procedure well. Findings: The examined esophagus was normal, other than a small sliding hiatal hernia. The stomach mucosa was normal, although there appeared to be a small paraesophageal hernia on retrolfexion. There was marked deformity of the pre-pyloric antrum, and the stomach appeared somewhat large and boot shaped. There was a large cratered duodenal ulcer with marked edema. There was a flat pigmented spot at the base of the ulcer. Impression: - Possible type 3 hiatal hernia. Would not pursue further testing for this given comorbidities. - Antral deformity and mildly boot shaped stomach that may sugget delay in gastric emptying. - Large cratered duodenal ulcer with flat pigmented spot. Recommendation: - Discharge patient to telemetry; cont telemtry monitoring x 48 hours. Despite lack of high risk stigmata, would still treat conservatively - cont PPI gtt x 3 days. OK for clear liquids today; may have full liquids tomorrow. Check hgb twice daily. Spencer Velez M.D. Spencer Velez MD 11/12/2016 11:55:11 AM This report has been signed electronically. Note Initiated On: 11/12/2016 11:27 AM I attest to the content of the Intraoperative Record and orders documented therein, exceptions below
--- NOTE | 2016-11-12 12:34 | Anesthesiology Progress Note ---
Anesthesia Post Op Note Date & Time Nov 12, 2016 at 12:34 Vital Signs Pain Intensity: 0.0 Vital Signs Past 12 Hours Date Time Temp Pulse Resp B/P Pulse Ox O2 Delivery O2 Flow Rate FiO2 11/12/16 12:20 100 16 96/55 98 Room Air 11/12/16 12:05 103 16 95/53 100 Mask 3 11/12/16 11:50 100 16 106/56 100 Mask 3 11/12/16 10:52 36.6 95 14 121/67 98 Room Air 11/12/16 07:14 36.3 93 16 111/72 96 6.0 11/12/16 07:10 110 18 97 Room Air 11/12/16 04:00 97 Room Air 11/12/16 03:29 37.0 110 22 92/59 97 Room Air 11/12/16 01:04 36.7 106 20 105/67 98 Room Air Notes Mental Status: alert / awake / arousable, participated in evaluation Pt Amnestic to Procedure: Yes Nausea / Vomiting: adequately controlled Pain: adequately controlled Airway Patency, RR, SpO2: stable & adequate BP & HR: stable & adequate Hydration State: stable & adequate Anesthetic Complications: no major complications apparent
[2016-11-12] MEDS: LEVOFLOXACIN / D5W 500 MG in PREMIXED IN D5W 100 ML IV SCH (13:24)
[2016-11-12 14:29] LABS: HEMATOCRIT 23.8 % (42-52)
--- NOTE | 2016-11-12 18:56 | Family Medicine Progress Note ---
Progress Note Date of Service Nov 12, 2016. 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 He was feeling nauseous intermittently for the last 3 weeks and had noticed blood in stool the last 3 days. He was scheduled for an EGD to be performed today. In the ER ,he had passed large blood clots and had received 2 L fluid bolus and was started on Protonix drip Has not had any more bloody stools since admission. Denies any chest pains, palpitations, shortness of breath, dizziness or lightheadedness. Denies fevers with chills, abdominal pain. Continues to have nausea. Constitutional: No chills, No fever ENT: No hearing loss Respiratory: No cough, No wheezing Cardiovascular: No chest pain Abdomen: + GI bleeding, + nausea, No pain Neurologic: + problem reported (quadriparesis) Medications Current Inpatient Medications Medications (Trade) Dose Ordered Sig/Sabine Route Start Time Stop Time Status Last Admin Dose Admin Acetaminophen (Tylenol Tab) 650 mg Q4H PRN PO 11/12/16 00:00 12/12/16 00:00 Al Hydrox/Mg Hydrox/Simethicone (Maalox Max Susp) 15 ml Q4H PRN PO 11/12/16 00:00 12/12/16 00:00 Magnesium Hydroxide (Milk Of Magnesia Susp) 30 ml Q12H PRN PO 11/12/16 00:00 12/12/16 00:00 Ondansetron HCl (Zofran Inj) 4 mg Q6H PRN IV 11/12/16 00:00 12/12/16 00:00 Nitroglycerin (Nitrostat Tab) 0.4 mg UD PRN SL 11/12/16 00:00 12/12/16 00:00 Morphine Sulfate (MoRPHine SULFATE INJ) 2 mg Q30M PRN IV 11/12/16 00:00 11/26/16 00:00 Polyethylene (Miralax Powder Packet) 17 gm DAILY PRN PO 11/12/16 00:00 12/12/16 00:00 Albuterol Sulfate (Ventolin 0.083% 2.5MG/3ML Neb) 2.5 mg BIDR INH 11/12/16 08:00 12/12/16 08:59 11/12/16 07:41 2.5 MG Albuterol Sulfate (Ventolin 0.083% 2.5MG/3ML Neb) 2.5 mg Q6 PRN INH 11/12/16 00:30 12/12/16 00:29 Prednisolone Acetate (Pred Forte 1% Oph Susp) 1 drops DAILY OPL 11/12/16 09:00 12/12/16 08:59 11/12/16 08:29 1 DROPS Promethazine HCl (Phenergan Tab) 25 mg Q6H PRN PO 11/12/16 00:30 12/12/16 00:29 Simethicone (Mylicon Chew Tab) 80 mg BID PO 11/12/16 09:00 12/12/16 08:59 Artificial Tears (Artificial Tears) 1 drops Q2H OPB 11/12/16 01:30 12/12/16 00:29 11/12/16 17:34 1 DROPS Miscellaneous Information (Order Awaiting Action) 1 ea QS N/A 11/12/16 08:00 12/12/16 07:59 Miscellaneous Information (Order Awaiting Action) 1 ea QS N/A 11/12/16 08:00 12/12/16 07:59 Miscellaneous Information 1 ea 1 ea QS N/A 11/12/16 08:00 12/12/16 07:59 Potassium Chloride/Sodium Chloride 1,000 ml @ 125 mls/hr Q8H IV 11/12/16 01:30 12/12/16 00:29 11/12/16 09:51 125 MLS/HR Pantoprazole Sodium/Dextrose (Protonix Inj/D5 100ml) 100 ml @ 20 mls/hr Q5H IV 11/12/16 04:00 12/12/16 03:59 11/12/16 15:55 20 MLS/HR Ketoconazole 1 appln 1 appln MoWeFr@0900 EXT 11/12/16 09:00 12/12/16 08:59 Levofloxacin/Prmx (Levaquin / D5W/ Premixed D5W) 100 ml @ 100 mls/hr Q24H IV 11/12/16 11:15 11/17/16 11:14 11/12/16 13:24 100 MLS/HR Enteral Nutritional Formula (Boost Breeze Nutritional Drink) 1 box DAILY PO 11/13/16 09:00 12/13/16 08:59 Objective Vital Signs Date Time Temp Pulse Resp B/P Pulse Ox O2 Delivery O2 Flow Rate FiO2 11/12/16 16:00 Room Air 11/12/16 15:15 36.4 103 16 95/54 100 Room Air 11/12/16 13:43 36.7 105 16 100/61 98 Room Air 11/12/16 13:15 99 16 99/54 100 Room Air 11/12/16 13:00 Room Air 11/12/16 12:57 36.6 103 16 97/51 100 Room Air 11/12/16 12:20 100 16 96/55 98 Room Air 11/12/16 12:05 103 16 95/53 100 Mask 3 11/12/16 11:50 100 16 106/56 100 Mask 3 11/12/16 10:52 36.6 95 14 121/67 98 Room Air 11/12/16 08:00 Room Air 11/12/16 07:14 36.3 93 16 111/72 96 6.0 11/12/16 07:10 110 18 97 Room Air 11/12/16 04:00 97 Room Air 11/12/16 03:29 37.0 110 22 92/59 97 Room Air 11/12/16 01:04 36.7 106 20 105/67 98 Room Air 11/12/16 00:23 107 19 121/81 98 Room Air 11/12/16 00:01 101/68 11/11/16 23:59 109 25 100 11/11/16 23:30 111/59 11/11/16 23:29 103 17 99 11/11/16 23:20 91/58 11/11/16 22:59 108 18 100 11/11/16 22:55 104/63 11/11/16 22:41 36.9 130 20 86/55 100 Room Air 11/11/16 22:34 111 21 76/48 100 Room Air 11/11/16 22:29 120 28 100 11/11/16 22:28 76/48 11/11/16 22:26 98 Room Air 11/11/16 22:21 122 11/11/16 22:05 86/55 Physical Exam General Appearance: WD/WN, no apparent distress Eyes: + pertinent finding (left eyelid partially fused) ENT: normal ENT inspection, hearing grossly normal, + muffled/hoarse voice (at baseline) Neck: supple Respiratory/Chest: chest non-tender, lungs clear, normal breath sounds Cardiovascular: + systolic murmur Abdomen: normal bowel sounds Extremities: normal range of motion, no pedal edema Neurologic/Psychiatric: alert, normal mood/affect, oriented x 3, + pertinent finding (quadriparesis) Skin: normal color Laboratory Results 11/12/16 06:57 Red Blood Count 2.98, Mean Corpuscular Volume 87.6, Mean Corpuscular Hemoglobin 29.2, Mean Corpuscular Hemoglobin Concent 33.3, Mean Platelet Volume 10.4, Neutrophils (%) (Auto) 59.9, Lymphocytes (%) (Auto) 31.2, Monocytes (%) (Auto) 7.9, Eosinophils (%) (Auto) 0.5, Basophils (%) (Auto) 0.2, Neutrophils # (Auto) 5.22, Lymphocytes # (Auto) 2.72, Monocytes # (Auto) 0.69, Eosinophils # (Auto) 0.04, Basophils # (Auto) 0.02 11/12/16 14:14 11/12/16 06:57 Test 11/11/16 22:30 11/11/16 22:35 11/12/16 06:57 Urine Color YELLOW Urine Appearance TURBID (CLEAR) Urine pH 6.5 (4.5-7.5) Urine Specific [place] 1.026 (1.000-1.030) Urine Protein 2+ (NEG) Urine Glucose (UA) TRACE (NEG) Urine Ketones 2+ (NEG) Urine Occult Blood 1+ (NEG) Urine Nitrite POS (NEG) Urine Bilirubin NEG (NEG) Urine Urobilinogen NEG (NEG) Urine Leukocyte Esterase LARGE (NEG) Urine WBC (Auto) >30 /hpf (0-5) Urine RBC (Auto) 0-4 /hpf (0-4) Urine Hyaline Casts (Auto) 1-5 /lpf (0-5) Urine Epithelial Cells (Auto) 10-20 /lpf (0-5) Urine Bacteria (Auto) 2+ (NEG) Urine Pathogenic Casts /lpf (0) Urine Mucus PRESENT (NONE PRSENT) Prothrombin Time 12.0 SECONDS (9.0-12.0) Prothromb Time International Ratio 1.1 (0.9-1.1) Activated Partial Thromboplast Time 25.6 SECONDS (21.0-31.0) Partial Thromboplastin Ratio 1.0 Direct Bilirubin 0.1 mg/dl (0-0.2) Lipase 50 U/L (73-393) White Blood Count 8.72 K/uL (4.8-10.8) Red Blood Count 2.98 M/uL (4.7-6.1) Hemoglobin 8.7 g/dL (14.0-18.0) Hematocrit 26.1 % (42-52) Mean Corpuscular Volume 87.6 fL (80-100) Mean Corpuscular Hemoglobin 29.2 pg (25-34) Mean Corpuscular Hemoglobin Concent 33.3 g/dl (32-36) Platelet Count 184 K/uL (130-400) Mean Platelet Volume 10.4 fL (7.4-10.4) Neutrophils (%) (Auto) 59.9 % Lymphocytes (%) (Auto) 31.2 % Monocytes (%) (Auto) 7.9 % Eosinophils (%) (Auto) 0.5 % Basophils (%) (Auto) 0.2 % Neutrophils # (Auto) 5.22 K/uL (1.4-6.5) Lymphocytes # (Auto) 2.72 K/uL (1.2-3.4) Monocytes # (Auto) 0.69 K/uL (0.11-0.59) Eosinophils # (Auto) 0.04 K/uL (0-0.5) Basophils # (Auto) 0.02 K/uL (0-0.2) RDW Standard Deviation 48.5 fL (36.4-46.3) RDW Coefficient of Variation 15.3 % (11.5-14.5) Immature Granulocyte % (Auto) 0.3 % Immature Granulocyte # (Auto) 0.03 K/uL (0.00-0.02) Red Blood Cell Morphology Unremarkable Anion Gap 9.0 mmol/L (3-11) Est Creatinine Clear Calc Drug Dose 112.5 ml/min Estimated GFR () 109.7 Estimated GFR (Non- 94.7 BUN/Creatinine Ratio 41.0 (10-20) Calcium Level 7.7 mg/dl (8.5-10.1) Total Bilirubin 0.3 mg/dl (0.2-1) Aspartate Amino Transf (AST/SGOT) 20 U/L (15-37) Alanine Aminotransferase (ALT/SGPT) 23 U/L (12-78) Alkaline Phosphatase 55 U/L (45-117) Total Protein 5.4 gm/dl (6.4-8.2) Albumin 2.6 gm/dl (3.4-5.0) Globulin 2.8 gm/dl (2.5-4.0) Albumin/Globulin Ratio 0.9 (0.9-2) Date/Time Source Procedure Growth Status 11/12/16 03:40 Nasal MRSA DNA Surveillance Screen - Final Specimen Negative for MRSA by DNA Probe Complete Assessment and Plan 76-year-old male with past medical history of 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 He was found to have large blood clots per rectum while in the ER. GI bleeding: Secondary to duodenal ulcer - GI consult - appreciate input - Continue Protonix drip - EGD done today: - Possible type 3 hiatal hernia. - Antral deformity and mildly boot shaped stomach that may sugget delay in gastric emptying. - Large cratered duodenal ulcer with flat pigmented spot. - Monitor hemoglobin twice daily - Clear liquids, advance to full Acute blood loss anemia: Hemoglobin and admission 10.7, last hemoglobin 8.2 - Low threshold to transfuse if hemoglobin drops less than 8 - 2 units PRBCs on hold - Monitor hemoglobin twice daily Tachycardia: Likely secondary to anemia UTI: - UA: Large leuk esterase, 2+ bacteria, positive nitrite - Urine culture pending - Started on Levaquin 500 mg daily Asthma - Continue inhalers / nebulizers as needed VTE: SCDs CODE STATUS: DNR Disposition: Monitor in telemetry Continued [facility] stay due to: abnormal vital signs Reviewed: Pt Seen/Exam by Me History Pt is hungry and thirsty s/p EGD. He is uncertain if he has passed any further clots this AM. No chest pain or SOB. 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 Agree with HPI/ROS as noted. General Appearance: WD/WN, no apparent distress Respiratory: normal breath sounds, no respiratory distress Cardiovascular: normal peripheral pulses, regular rate, rhythm Gastrointestinal: non tender, soft, distended Extremities: non-tender, no pedal edema Neurologic/Psychiatric: alert, normal mood/affect Skin Characteristics: normal color, warm/dry Assessment/Plan Resident Physician Supervision Note: I discussed the case with the resident and agree with the findings and plan as documented in the note. Any exceptions or clarifications are listed here: Agree with HPI/ROS as noted EGD noted for duodenal ulcer and grade III hiatal hernia Advance to clears and can go to full liquids tomorrow Protonix gtt Documented By: Sis Truong
[2016-11-12 19:40] LABS: HEMATOCRIT 23.1 % (42-52)
[2016-11-12] MEDS: SIMETHICONE 40 MG/0.6 ML 30ML PO SCH (22:28)
[2016-11-13] VITALS (16 sets, daily range): BP systolic 88–119; BP diastolic 50–82; PULSE 72–111; TEMP 36.4–37; O2SAT 91–100
[2016-11-13] MEDS: ARTIFICIAL TEARS OP SOLN OPB SCH ×26 (00:02→23:45)
[2016-11-13] MEDS: PANTOprazole INJ 40 MG in DEXTROSE 5% 100ML IV SCH ×5 (00:02→19:54)
[2016-11-13] MEDS: SODIUM CHLOR 0.45% + 20MEQ KCL 1,000 ML IV SCH ×3 (02:59→19:46)
--- NOTE | 2016-11-13 03:33 | Progress Note ---
Progress Note Date of Service Nov 13, 2016. 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 Was instructed by day team to transfuse if <8. Ordered 2 units of PRBC for transfusion. Was called again later that pt was blood type O negative, but the blood available for him was O positive. The patient declined accepting this type of blood as he was scared of the potential for adverse reaction. We rechecked an H&H and it had gone to 7.6. I discussed this iwht Dr Arteaga, we agreed that we would check another H&H in 3 hours and if it dropped <7 I would discuss this with the patient one more time on the benefits of receiving this blood outweight the risks Was then called that lab had one unit of O negative blood they could transfuse him. Cancelled second H&H order. Resident Tracking Resident Involvement: Rehab Nurse Coverage Note Care Provided: Adult Hospital Medicine
--- NOTE | 2016-11-13 05:59 | Clinical Documentation Query ---
CLINICAL DOCUMENTATION QUERY 76-y/o male who presents with symptoms associated to a bleeding duodenal ulcer. 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 The diagnosis for Incomplete Quadriplegia per ICD 10 coding guidelines need to be further specified to capture its' clinical significance. In your clinical opinion is this patient being managed for: ( ) Incomplete Quadriplegia C1-C4 ( ) Incomplete Quadriplegia C5-C7 ( ) Other explanation of clinical findings (Please Explain) ( ) Unable to determine (Please Define) ( ) Need to Discuss ( ) Not Agree The medical record reflects the following clinical findings, treatment, and risk factors. Clinical Indicators: As above. Nursing assessments state severe weakness and not able to grasp. Treatment: Q2h repositioning, Assists of 2 for care. Assistance with feeding, Risk Factors: GBS Please clarify and document your clinical opinion in the progress notes and discharge summary. Terms such as "probable", "suspected", "likely", "questionable", "possible", or "still to be ruled out" are acceptable. IF IN AGREEMENT, YOU MUST DOCUMENT ABOVE DIAGNOSTIC STATEMENT IN DAILY PROGRESS NOTES AND DISCHARGE SUMMARY. This document is not part of the patient's record. Thank You, Marcelo Corado, LONG [phone]
[2016-11-13] MEDS: ALBUTEROL 0.083% NEBU SOLN 3 ML VIAL INH SCH ×2 (07:15→19:11)
[2016-11-13 07:44] LABS: BASO % 0.1 %; BASO ABS # 0.01 K/uL (0-0.2); COMPLETE YES; EOS % 2.8 %; HEMATOCRIT 26.8 % (42-52); IG% 0.3 %; LYMPH % 34.4 %; LYMPH ABS # 2.59 K/uL (1.2-3.4); MEAN CELL VOLUME 88.4 fL (80-100); MEAN CORPUSCULAR HEMOGLOBIN 29.7 pg (25-34); MEAN CORPUSCULAR HGB CONC 33.6 g/dl (32-36); MEAN PLATELET VOLUME 9.9 fL (7.4-10.4); MONO % 6.6 %; NEUT % 55.8 %; PLATELET COUNT 152 K/uL (130-400); RED BLOOD COUNT 3.03 M/uL (4.7-6.1); WHITE BLOOD COUNT 7.52 K/uL (4.8-10.8)
[2016-11-13 08:24] LABS: ALB/GLOB RATIO 1.1 (0.9-2); BUN/CREATININE RATIO 20.8 (10-20); CALCIUM 7.8 mg/dl (8.5-10.1); CREATININE 0.6 mg/dl (0.60-1.40); POTASSIUM 4.2 mmol/L (3.5-5.1)
[2016-11-13] MEDS: PrednisoLONE ACET 1% OP SUSP 5 ML BTL OPL SCH (09:54)
[2016-11-13] MEDS: BOOST BREEZE NUTRITION DRINK 1 BOX PO SCH (09:54)
[2016-11-13] MEDS: SIMETHICONE 40 MG/0.6 ML 30ML PO SCH ×2 (09:57→21:23)
--- NOTE | 2016-11-13 10:45 | Family Medicine Progress Note ---
Progress Note Date of Service Nov 13, 2016. 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 He was feeling nauseous intermittently for the last 3 weeks and had noticed blood in stool the last 3 days. He was scheduled for an EGD to be performed today. In the ER ,he had passed large blood clots and had received 2 L fluid bolus and was started on Protonix drip and had undergone EGD yesterday. His hemoglobin had dropped to 7.2 and was transfused 1 unit of PRBCs which he tolerated well Has not had any more bloody stools since admission. Denies any chest pains, palpitations, shortness of breath, dizziness or lightheadedness. Denies fevers with chills, abdominal pain. Constitutional: No chills, No fever Eyes: No worsening of vision ENT: No hearing loss Respiratory: No cough, No shortness of breath, No sputum Cardiovascular: No chest pain, No palpitations Abdomen: No diarrhea, No nausea, No pain, No vomiting Musculoskeletal: No joint pain Male : No dysuria Neurologic: + problem reported (quadriparesis), No memory loss Psychiatric: No depression symptoms Heme: No abnormal bleeding/bruising Medications Current Inpatient Medications Medications (Trade) Dose Ordered Sig/Sabine Route Start Time Stop Time Status Last Admin Dose Admin Acetaminophen (Tylenol Tab) 650 mg Q4H PRN PO 11/12/16 00:00 12/12/16 00:00 Al Hydrox/Mg Hydrox/Simethicone (Maalox Max Susp) 15 ml Q4H PRN PO 11/12/16 00:00 12/12/16 00:00 Magnesium Hydroxide (Milk Of Magnesia Susp) 30 ml Q12H PRN PO 11/12/16 00:00 12/12/16 00:00 Ondansetron HCl (Zofran Inj) 4 mg Q6H PRN IV 11/12/16 00:00 12/12/16 00:00 Nitroglycerin (Nitrostat Tab) 0.4 mg UD PRN SL 11/12/16 00:00 12/12/16 00:00 Morphine Sulfate (MoRPHine SULFATE INJ) 2 mg Q30M PRN IV 11/12/16 00:00 11/26/16 00:00 Polyethylene (Miralax Powder Packet) 17 gm DAILY PRN PO 11/12/16 00:00 12/12/16 00:00 Albuterol Sulfate (Ventolin 0.083% 2.5MG/3ML Neb) 2.5 mg BIDR INH 11/12/16 08:00 12/12/16 08:59 11/13/16 07:15 2.5 MG Albuterol Sulfate (Ventolin 0.083% 2.5MG/3ML Neb) 2.5 mg Q6 PRN INH 11/12/16 00:30 12/12/16 00:29 Prednisolone Acetate (Pred Forte 1% Oph Susp) 1 drops DAILY OPL 11/12/16 09:00 12/12/16 08:59 11/13/16 09:54 1 DROPS Promethazine HCl (Phenergan Tab) 25 mg Q6H PRN PO 11/12/16 00:30 12/12/16 00:29 Artificial Tears (Artificial Tears) 1 drops Q2H OPB 11/12/16 01:30 12/12/16 00:29 11/13/16 09:30 1 DROPS Miscellaneous Information (Order Awaiting Action) 1 ea QS N/A 11/12/16 08:00 12/12/16 07:59 Miscellaneous Information (Order Awaiting Action) 1 ea QS N/A 11/12/16 08:00 12/12/16 07:59 Miscellaneous Information 1 ea 1 ea QS N/A 11/12/16 08:00 12/12/16 07:59 Potassium Chloride/Sodium Chloride 1,000 ml @ 125 mls/hr Q8H IV 11/12/16 01:30 12/12/16 00:29 11/13/16 02:59 125 MLS/HR Pantoprazole Sodium/Dextrose (Protonix Inj/D5 100ml) 100 ml @ 20 mls/hr Q5H IV 11/12/16 04:00 12/12/16 03:59 11/13/16 05:25 20 MLS/HR Ketoconazole 1 appln 1 appln MoWeFr@0900 EXT 11/12/16 09:00 4/14/17 08:59 Levofloxacin/Prmx (Levaquin / D5W/ Premixed D5W) 100 ml @ 100 mls/hr Q24H IV 11/12/16 11:15 11/17/16 11:14 11/12/16 13:24 100 MLS/HR Enteral Nutritional Formula (Boost Breeze Nutritional Drink) 1 box DAILY PO 11/13/16 09:00 12/13/16 08:59 11/13/16 09:54 1 BOX Simethicone (Mylicon Drops) 80 mg BID PO 11/12/16 21:00 12/12/16 20:59 11/13/16 09:57 80 MG Objective Vital Signs Date Time Temp Pulse Resp B/P Pulse Ox O2 Delivery O2 Flow Rate FiO2 11/13/16 09:37 36.9 88 18 105/67 95 Room Air 11/13/16 08:00 Room Air 11/13/16 07:15 105 18 96 Room Air 11/13/16 05:01 36.6 101 18 119/82 11/13/16 04:30 36.5 94 18 97/54 11/13/16 04:30 36.5 95 18 118/81 11/13/16 04:05 36.7 75 18 88/52 91 11/13/16 04:04 96 Room Air 11/13/16 03:39 36.4 72 16 88/50 91 11/13/16 03:26 36.7 99 18 89/52 93 11/13/16 03:18 36.8 90 18 102/63 99 11/13/16 03:09 11/13/16 00:00 96 Room Air 11/12/16 23:55 36.7 106 20 102/61 98 Room Air 11/12/16 20:13 36.5 106 18 94/63 98 Room Air 11/12/16 20:00 96 Room Air 11/12/16 19:06 103 18 96 Room Air 11/12/16 16:00 Room Air 11/12/16 15:15 36.4 103 16 95/54 100 Room Air 11/12/16 13:43 36.7 105 16 100/61 98 Room Air 11/12/16 13:15 99 16 99/54 100 Room Air 11/12/16 13:00 Room Air 11/12/16 12:57 36.6 103 16 97/51 100 Room Air 11/12/16 12:20 100 16 96/55 98 Room Air 11/12/16 12:05 103 16 95/53 100 Mask 3 11/12/16 11:50 100 16 106/56 100 Mask 3 11/12/16 10:52 36.6 95 14 121/67 98 Room Air Physical Exam General Appearance: WD/WN, no apparent distress Eyes: + pertinent finding (left eyelid partially fused) ENT: normal ENT inspection Neck: supple Respiratory/Chest: chest non-tender, lungs clear, normal breath sounds, no respiratory distress, no accessory muscle use Cardiovascular: regular rate, rhythm, + systolic murmur Abdomen: normal bowel sounds, non tender, soft Neurologic/Psychiatric: alert, normal mood/affect, oriented x 3, + pertinent finding (quadriparesis) Skin: normal color Laboratory Results 11/13/16 07:23 Red Blood Count 3.03, Mean Corpuscular Volume 88.4, Mean Corpuscular Hemoglobin 29.7, Mean Corpuscular Hemoglobin Concent 33.6, Mean Platelet Volume 9.9, Neutrophils (%) (Auto) 55.8, Lymphocytes (%) (Auto) 34.4, Monocytes (%) (Auto) 6.6, Eosinophils (%) (Auto) 2.8, Basophils (%) (Auto) 0.1, Neutrophils # (Auto) 4.19, Lymphocytes # (Auto) 2.59, Monocytes # (Auto) 0.50, Eosinophils # (Auto) 0.21, Basophils # (Auto) 0.01 11/13/16 07:23 Test 11/13/16 07:23 White Blood Count 7.52 K/uL (4.8-10.8) Red Blood Count 3.03 M/uL (4.7-6.1) Hemoglobin 9.0 g/dL (14.0-18.0) Hematocrit 26.8 % (42-52) Mean Corpuscular Volume 88.4 fL (80-100) Mean Corpuscular Hemoglobin 29.7 pg (25-34) Mean Corpuscular Hemoglobin Concent 33.6 g/dl (32-36) Platelet Count 152 K/uL (130-400) Mean Platelet Volume 9.9 fL (7.4-10.4) Neutrophils (%) (Auto) 55.8 % Lymphocytes (%) (Auto) 34.4 % Monocytes (%) (Auto) 6.6 % Eosinophils (%) (Auto) 2.8 % Basophils (%) (Auto) 0.1 % Neutrophils # (Auto) 4.19 K/uL (1.4-6.5) Lymphocytes # (Auto) 2.59 K/uL (1.2-3.4) Monocytes # (Auto) 0.50 K/uL (0.11-0.59) Eosinophils # (Auto) 0.21 K/uL (0-0.5) Basophils # (Auto) 0.01 K/uL (0-0.2) RDW Standard Deviation 50.1 fL (36.4-46.3) RDW Coefficient of Variation 15.6 % (11.5-14.5) Immature Granulocyte % (Auto) 0.3 % Immature Granulocyte # (Auto) 0.02 K/uL (0.00-0.02) Anion Gap 7.0 mmol/L (3-11) Est Creatinine Clear Calc Drug Dose 126.5 ml/min Estimated GFR () 114.8 Estimated GFR (Non- 99.1 BUN/Creatinine Ratio 20.8 (10-20) Calcium Level 7.8 mg/dl (8.5-10.1) Total Bilirubin 0.6 mg/dl (0.2-1) Aspartate Amino Transf (AST/SGOT) 25 U/L (15-37) Alanine Aminotransferase (ALT/SGPT) 22 U/L (12-78) Alkaline Phosphatase 54 U/L (45-117) Total Protein 5.4 gm/dl (6.4-8.2) Albumin 2.8 gm/dl (3.4-5.0) Globulin 2.6 gm/dl (2.5-4.0) Albumin/Globulin Ratio 1.1 (0.9-2) Assessment and Plan 76-year-old male with past medical history of 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 He was found to have large blood clots per rectum while in the ER. Hemoglobin had dropped to 7.2 yesterday and he was transfused 1 unit of packed red blood cells. GI bleeding: Secondary to duodenal ulcer - GI consult - appreciate input - Continue Protonix drip - EGD done today: - Possible type 3 hiatal hernia. - Antral deformity and mildly boot shaped stomach that may sugget delay in gastric emptying. - Large cratered duodenal ulcer with flat pigmented spot. - Monitor hemoglobin twice daily - Clear liquids, advance to full Acute blood loss anemia: Status post 1 unit PRBC transfusion Hemoglobin had dropped to 7.2 after which he was transfused - Hemoglobin today at 9 - Monitor hemoglobin twice daily Tachycardia: Likely secondary to anemia UTI: - UA: Large leuk esterase, 2+ bacteria, positive nitrite - Urine culture: gram-negative bacilli and staph aureus - Started on Levaquin 500 mg daily , day 2 today Asthma - Continue inhalers / nebulizers as needed VTE: SCDs CODE STATUS: DNR Disposition: Monitor in telemetry, monitor H&H Reviewed: Pt Seen/Exam by Me History Pt is feeling improved. Has tolerated breakfast and lunch. No n/v, abd pain. No chest pain, SOB. He seems in better spirits today, telling me about a book that he was featured in due to his positive attitude in the face of the limitations brought on to him with GBS. Agree with HPI/ROS as noted. General Appearance: WD/WN, no apparent distress Respiratory: normal breath sounds, no respiratory distress Cardiovascular: normal peripheral pulses, regular rate, rhythm Gastrointestinal: non tender, soft Extremities: non-tender, no pedal edema Neurologic/Psychiatric: alert, normal mood/affect Skin Characteristics: normal color, warm/dry Assessment/Plan Resident Physician Supervision Note: I discussed the case with the resident and agree with the findings and plan as documented in the note. Any exceptions or clarifications are listed here: Agree with HPI/ROS as noted EGD noted for duodenal ulcer and grade III hiatal hernia ADAT Protonix gtt x3 days s/p 2 units PRBC with improved Hb Documented By: Sis Truong
--- NOTE | 2016-11-13 11:32 | Gastroenterology Progress Note ---
Progress Note Date of Service: Nov 13, 2016 Subjective Pt evaluation today including: conversation w/ patient, physical exam, chart review Patient was seen and examined this afternoon. He is doing well today no complaints. Was nauseas yesterday after his EGD. Denies fever, chills, chest pain, SOB, abdominal pain. Drop in H&H overnight 8.2 ---> 7.6 ---> 1 unit RBC ---> 9 EGD 11/12/16: Possible type 3 hiatal hernia. Would not pursue further testing for this given comorbidities. Antral deformity and mildly boot shaped stomach that may suggest delay in gastric emptying.Large cratered duodenal ulcer with flat pigmented spot. Recommendation: cont telemetry monitoring x 48 hours. Despite lack of high risk stigmata, would still treat conservatively - cont PPI gtt x 3 days. OK for clear liquids today; may have full liquids tomorrow. Check hgb twice daily. Review of Systems Constitutional: No chills, No fever Respiratory: No shortness of breath Cardiac: No chest pain, No edema Abdomen: No nausea, No pain, No vomiting Medications Current Inpatient Medications Medications (Trade) Dose Ordered Sig/Sabine Route Start Time Stop Time Status Last Admin Dose Admin Acetaminophen (Tylenol Tab) 650 mg Q4H PRN PO 11/12/16 00:00 12/12/16 00:00 Al Hydrox/Mg Hydrox/Simethicone (Maalox Max Susp) 15 ml Q4H PRN PO 11/12/16 00:00 12/12/16 00:00 Magnesium Hydroxide (Milk Of Magnesia Susp) 30 ml Q12H PRN PO 11/12/16 00:00 12/12/16 00:00 Ondansetron HCl (Zofran Inj) 4 mg Q6H PRN IV 11/12/16 00:00 12/12/16 00:00 Nitroglycerin (Nitrostat Tab) 0.4 mg UD PRN SL 11/12/16 00:00 12/12/16 00:00 Morphine Sulfate (MoRPHine SULFATE INJ) 2 mg Q30M PRN IV 11/12/16 00:00 11/26/16 00:00 Polyethylene (Miralax Powder Packet) 17 gm DAILY PRN PO 11/12/16 00:00 12/12/16 00:00 Albuterol Sulfate (Ventolin 0.083% 2.5MG/3ML Neb) 2.5 mg BIDR INH 11/12/16 08:00 12/12/16 08:59 11/13/16 07:15 2.5 MG Albuterol Sulfate (Ventolin 0.083% 2.5MG/3ML Neb) 2.5 mg Q6 PRN INH 11/12/16 00:30 12/12/16 00:29 Prednisolone Acetate (Pred Forte 1% Oph Susp) 1 drops DAILY OPL 11/12/16 09:00 12/12/16 08:59 11/13/16 09:54 1 DROPS Promethazine HCl (Phenergan Tab) 25 mg Q6H PRN PO 11/12/16 00:30 12/12/16 00:29 Artificial Tears (Artificial Tears) 1 drops Q2H OPB 11/12/16 01:30 12/12/16 00:29 11/13/16 09:30 1 DROPS Miscellaneous Information (Order Awaiting Action) 1 ea QS N/A 11/12/16 08:00 12/12/16 07:59 Miscellaneous Information (Order Awaiting Action) 1 ea QS N/A 11/12/16 08:00 12/12/16 07:59 Miscellaneous Information 1 ea 1 ea QS N/A 11/12/16 08:00 12/12/16 07:59 Potassium Chloride/Sodium Chloride 1,000 ml @ 125 mls/hr Q8H IV 11/12/16 01:30 12/12/16 00:29 11/13/16 02:59 125 MLS/HR Pantoprazole Sodium/Dextrose (Protonix Inj/D5 100ml) 100 ml @ 20 mls/hr Q5H IV 11/12/16 04:00 12/12/16 03:59 11/13/16 10:40 20 MLS/HR Ketoconazole 1 appln 1 appln MoWeFr@0900 EXT 11/12/16 09:00 12/12/16 08:59 Levofloxacin/Prmx (Levaquin / D5W/ Premixed D5W) 100 ml @ 100 mls/hr Q24H IV 11/12/16 11:15 11/17/16 11:14 11/12/16 13:24 100 MLS/HR Enteral Nutritional Formula (Boost Breeze Nutritional Drink) 1 box DAILY PO 11/13/16 09:00 12/13/16 08:59 11/13/16 09:54 1 BOX Simethicone (Mylicon Drops) 80 mg BID PO 11/12/16 21:00 12/12/16 20:59 11/13/16 09:57 80 MG Objective Vital Signs Date Time Temp Pulse Resp B/P Pulse Ox O2 Delivery O2 Flow Rate FiO2 11/13/16 09:37 36.9 88 18 105/67 95 Room Air 11/13/16 08:00 Room Air 11/13/16 07:15 105 18 96 Room Air 11/13/16 05:01 36.6 101 18 119/82 11/13/16 04:30 36.5 94 18 97/54 11/13/16 04:30 36.5 95 18 118/81 11/13/16 04:05 36.7 75 18 88/52 91 11/13/16 04:04 96 Room Air 11/13/16 03:39 36.4 72 16 88/50 91 11/13/16 03:26 36.7 99 18 89/52 93 11/13/16 03:18 36.8 90 18 102/63 99 11/13/16 03:09 11/13/16 00:00 96 Room Air 11/12/16 23:55 36.7 106 20 102/61 98 Room Air 11/12/16 20:13 36.5 106 18 94/63 98 Room Air 11/12/16 20:00 96 Room Air 11/12/16 19:06 103 18 96 Room Air 11/12/16 16:00 Room Air 11/12/16 15:15 36.4 103 16 95/54 100 Room Air 11/12/16 13:43 36.7 105 16 100/61 98 Room Air 11/12/16 13:15 99 16 99/54 100 Room Air 11/12/16 13:00 Room Air 11/12/16 12:57 36.6 103 16 97/51 100 Room Air 11/12/16 12:20 100 16 96/55 98 Room Air 11/12/16 12:05 103 16 95/53 100 Mask 3 11/12/16 11:50 100 16 106/56 100 Mask 3 Physical Exam General Appearance: no apparent distress (sitting upright in chair, asking about what he can eat for diner ) ENT: hearing grossly normal Neck: supple Respiratory/Chest: lungs clear, no respiratory distress, no accessory muscle use Cardiovascular: regular rate, rhythm, no gallop, no JVD, no murmur Abdomen: non tender, soft, no organomegaly Neurologic/Psych: alert, normal mood/affect, oriented x 3 Laboratory Results Last 24 Hours Test 11/12/16 14:14 11/12/16 19:33 11/13/16 00:36 11/13/16 07:23 Hemoglobin 8.2 g/dL 7.9 g/dL 7.6 g/dL 9.0 g/dL Hematocrit 23.8 % 23.1 % 22.0 % 26.8 % White Blood Count 7.52 K/uL Red Blood Count 3.03 M/uL Mean Corpuscular Volume 88.4 fL Mean Corpuscular Hemoglobin 29.7 pg Mean Corpuscular Hemoglobin Concent 33.6 g/dl Platelet Count 152 K/uL Mean Platelet Volume 9.9 fL Neutrophils (%) (Auto) 55.8 % Lymphocytes (%) (Auto) 34.4 % Monocytes (%) (Auto) 6.6 % Eosinophils (%) (Auto) 2.8 % Basophils (%) (Auto) 0.1 % Neutrophils # (Auto) 4.19 K/uL Lymphocytes # (Auto) 2.59 K/uL Monocytes # (Auto) 0.50 K/uL Eosinophils # (Auto) 0.21 K/uL Basophils # (Auto) 0.01 K/uL RDW Standard Deviation 50.1 fL RDW Coefficient of Variation 15.6 % Immature Granulocyte % (Auto) 0.3 % Immature Granulocyte # (Auto) 0.02 K/uL Sodium Level 142 mmol/L Potassium Level 4.2 mmol/L Chloride Level 112 mmol/L Carbon Dioxide Level 23 mmol/L Anion Gap 7.0 mmol/L Blood Urea Nitrogen 13 mg/dl Creatinine 0.60 mg/dl Est Creatinine Clear Calc Drug Dose 126.5 ml/min Estimated GFR () 114.8 Estimated GFR (Non- 99.1 BUN/Creatinine Ratio 20.8 Random Glucose 77 mg/dl Calcium Level 7.8 mg/dl Total Bilirubin 0.6 mg/dl Aspartate Amino Transf (AST/SGOT) 25 U/L Alanine Aminotransferase (ALT/SGPT) 22 U/L Alkaline Phosphatase 54 U/L Total Protein 5.4 gm/dl Albumin 2.8 gm/dl Globulin 2.6 gm/dl Albumin/Globulin Ratio 1.1 Assessment and Plan Stool for H.Pylori PPI gtt x 3 days PPI BID after drip Monitor H&H Transfuse as needed GI to sign off please call with any questions.
[2016-11-13] MEDS: LEVOFLOXACIN / D5W 500 MG in PREMIXED IN D5W 100 ML IV SCH (11:48)
[2016-11-14] VITALS (7 sets, daily range): BP systolic 117–129; BP diastolic 64–85; PULSE 72–103; TEMP 36.4–37; O2SAT 94–100
[2016-11-14] MEDS: ARTIFICIAL TEARS OP SOLN OPB SCH ×24 (01:30→23:30)
[2016-11-14] MEDS: PANTOprazole INJ 40 MG in DEXTROSE 5% 100ML IV SCH ×5 (02:32→21:57)
[2016-11-14] MEDS: SODIUM CHLOR 0.45% + 20MEQ KCL 1,000 ML IV SCH ×4 (02:34→23:26)
--- NOTE | 2016-11-14 04:42 | Clinical Documentation Query ---
CLINICAL DOCUMENTATION QUERY 76-y/o male who presents with symptoms associated to a bleeding duodenal ulcer. 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 The diagnosis for Incomplete Quadriplegia per ICD 10 coding guidelines need to be further specified to capture its' clinical significance. In your clinical opinion is this patient being managed for: ( ) Incomplete Quadriplegia C1-C4 ( ) Incomplete Quadriplegia C5-C7 (x ) Other explanation of clinical findings (Please Explain) Incomplete quad is related to GBS, not trauma at a specific level ( ) Unable to determine (Please Define) ( ) Need to Discuss ( ) Not Agree The medical record reflects the following clinical findings, treatment, and risk factors. Clinical Indicators: As above. Nursing assessments state severe weakness and not able to grasp. Treatment: Q2h repositioning, Assists of 2 for care. Assistance with feeding, Risk Factors: GBS Please clarify and document your clinical opinion in the progress notes and discharge summary. Terms such as "probable", "suspected", "likely", "questionable", "possible", or "still to be ruled out" are acceptable. IF IN AGREEMENT, YOU MUST DOCUMENT ABOVE DIAGNOSTIC STATEMENT IN DAILY PROGRESS NOTES AND DISCHARGE SUMMARY. This document is not part of the patient's record. Thank You, Marcelo Corado RN [phone]
[2016-11-14] MEDS: ALBUTEROL 0.083% NEBU SOLN 3 ML VIAL INH SCH ×2 (07:19→19:35)
[2016-11-14] MEDS: PrednisoLONE ACET 1% OP SUSP 5 ML BTL OPL SCH (07:40)
[2016-11-14] MEDS: KETOCONAZOLE EXT SCH (07:40)
[2016-11-14] MEDS: SIMETHICONE 40 MG/0.6 ML 30ML PO SCH ×2 (07:40→21:01)
[2016-11-14] MEDS: BOOST BREEZE NUTRITION DRINK 1 BOX PO SCH (07:41)
[2016-11-14 07:43] LABS: BASO % 0.3 %; BASO ABS # 0.02 K/uL (0-0.2); COMPLETE YES; EOS % 3.8 %; HEMATOCRIT 27.7 % (42-52); IG% 0.3 %; LYMPH % 30.3 %; LYMPH ABS # 1.91 K/uL (1.2-3.4); MEAN CELL VOLUME 86.8 fL (80-100); MEAN CORPUSCULAR HEMOGLOBIN 29.2 pg (25-34); MEAN CORPUSCULAR HGB CONC 33.6 g/dl (32-36); MEAN PLATELET VOLUME 9.6 fL (7.4-10.4); MONO % 9.4 %; NEUT % 55.9 %; PLATELET COUNT 170 K/uL (130-400); RED BLOOD COUNT 3.19 M/uL (4.7-6.1)
[2016-11-14 08:21] LABS: CALCIUM 8.6 mg/dl (8.5-10.1); CREATININE 0.56 mg/dl (0.60-1.40); POTASSIUM 4.3 mmol/L (3.5-5.1)
[2016-11-14] MEDS: LEVOFLOXACIN / D5W 500 MG in PREMIXED IN D5W 100 ML IV SCH (11:53)
[2016-11-14] MEDS ORDERED: SULFA/TRIMETH SUSP 800/160MG 20ML UDC PO SCH ×2 (15:00→21:00)
--- NOTE | 2016-11-14 15:34 | Family Medicine Progress Note ---
Progress Note Date of Service Nov 14, 2016. 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 He was feeling nauseous intermittently for the last 3 weeks and had noticed blood in stool the last 3 days [employer]AL[employer]ERK. In the ER ,he had passed large blood clots and had received 2 L fluid bolus and was started on Protonix drip and had undergone EGD yesterday. His hemoglobin had dropped to 7.2 and was transfused 1 unit of PRBCs which he tolerated well Has not had any more bloody stools since admission. Denies any chest pains, palpitations, shortness of breath, dizziness or lightheadedness. Denies fevers with chills, abdominal pain. today he complains of having increased frequency of urination but denies any dysuria/hematuria Constitutional: No chills, No fever ENT: No hearing loss Respiratory: No cough, No sputum Cardiovascular: No chest pain Abdomen: No nausea, No pain Musculoskeletal: No joint pain Male : + urinary frequency, No dysuria, No hematuria Neurologic: + problem reported (quadriparesis) Medications Current Inpatient Medications Medications (Trade) Dose Ordered Sig/Sabine Route Start Time Stop Time Status Last Admin Dose Admin Acetaminophen (Tylenol Tab) 650 mg Q4H PRN PO 11/12/16 00:00 12/12/16 00:00 Al Hydrox/Mg Hydrox/Simethicone (Maalox Max Susp) 15 ml Q4H PRN PO 11/12/16 00:00 12/12/16 00:00 Magnesium Hydroxide (Milk Of Magnesia Susp) 30 ml Q12H PRN PO 11/12/16 00:00 12/12/16 00:00 Ondansetron HCl (Zofran Inj) 4 mg Q6H PRN IV 11/12/16 00:00 12/12/16 00:00 Nitroglycerin (Nitrostat Tab) 0.4 mg UD PRN SL 11/12/16 00:00 12/12/16 00:00 Morphine Sulfate (MoRPHine SULFATE INJ) 2 mg Q30M PRN IV 11/12/16 00:00 11/26/16 00:00 Polyethylene (Miralax Powder Packet) 17 gm DAILY PRN PO 11/12/16 00:00 12/12/16 00:00 Albuterol Sulfate (Ventolin 0.083% 2.5MG/3ML Neb) 2.5 mg BIDR INH 11/12/16 08:00 12/12/16 08:59 11/14/16 07:19 2.5 MG Albuterol Sulfate (Ventolin 0.083% 2.5MG/3ML Neb) 2.5 mg Q6 PRN INH 11/12/16 00:30 12/12/16 00:29 Prednisolone Acetate (Pred Forte 1% Oph Susp) 1 drops DAILY OPL 11/12/16 09:00 12/12/16 08:59 11/14/16 07:40 1 DROPS Promethazine HCl (Phenergan Tab) 25 mg Q6H PRN PO 11/12/16 00:30 12/12/16 00:29 Artificial Tears (Artificial Tears) 1 drops Q2H OPB 11/12/16 01:30 12/12/16 00:29 11/14/16 13:30 1 DROPS Miscellaneous Information (Order Awaiting Action) 1 ea QS N/A 11/12/16 08:00 12/12/16 07:59 Miscellaneous Information (Order Awaiting Action) 1 ea QS N/A 11/12/16 08:00 12/12/16 07:59 Miscellaneous Information 1 ea 1 ea QS N/A 11/12/16 08:00 12/12/16 07:59 11/14/16 07:39 1 EA Potassium Chloride/Sodium Chloride 1,000 ml @ 125 mls/hr Q8H IV 11/12/16 01:30 12/12/16 00:29 11/14/16 11:54 125 MLS/HR Pantoprazole Sodium/Dextrose (Protonix Inj/D5 100ml) 100 ml @ 20 mls/hr Q5H IV 11/12/16 04:00 12/12/16 03:59 11/14/16 11:53 20 MLS/HR Ketoconazole (Nizoral 2% Shampoo) 1 appln MoWeFr@0900 EXT 11/12/16 09:00 12/12/16 08:59 11/14/16 07:40 1 APPLN Enteral Nutritional Formula (Boost Breeze Nutritional Drink) 1 box DAILY PO 11/13/16 09:00 12/13/16 08:59 11/14/16 07:41 1 BOX Simethicone (Mylicon Drops) 80 mg BID PO 11/12/16 21:00 12/12/16 20:59 11/14/16 07:40 80 MG Cefuroxime Axetil (Ceftin Tab) 250 mg Q12@0900,2100 PO 11/14/16 16:00 11/24/16 15:59 Trimethoprim/ Sulfamethoxazole (Septra Susp) 20 ml Q12@0900,2100 PO 11/14/16 16:00 11/24/16 15:59 Objective Vital Signs Date Time Temp Pulse Resp B/P Pulse Ox O2 Delivery O2 Flow Rate FiO2 11/14/16 15:16 36.4 94 18 117/85 99 Room Air 11/14/16 14:58 36.7 76 18 94 3.0 11/14/16 11:50 Room Air 11/14/16 11:07 36.7 76 18 129/68 94 11/14/16 08:00 Room Air 11/14/16 07:55 37.0 72 18 121/64 96 11/14/16 07:19 97 18 98 Room Air 11/14/16 04:00 36.6 103 16 128/85 97 Room Air 11/14/16 04:00 Room Air 11/13/16 23:59 Room Air 11/13/16 23:15 36.7 103 18 97/62 97 Room Air 11/13/16 20:00 Room Air 11/13/16 19:58 37.0 76 18 116/62 100 11/13/16 19:16 111 18 98 Room Air 11/13/16 17:05 Room Air 11/13/16 17:02 36.7 91 12 103/67 98 Room Air 11/13/16 16:00 Room Air 11/13/16 15:36 36.9 97 16 110/70 100 Physical Exam General Appearance: WD/WN, no apparent distress Eyes: + pertinent finding (left eyelid partially fused) Neck: supple Respiratory/Chest: chest non-tender, lungs clear, normal breath sounds, no respiratory distress, no accessory muscle use Cardiovascular: + systolic murmur Abdomen: normal bowel sounds, non tender, soft Extremities: normal range of motion, non-tender, normal inspection, no pedal edema, no calf tenderness Neurologic/Psychiatric: alert, normal mood/affect, + pertinent finding ( quadriparesis) Laboratory Results 11/14/16 07:25 Red Blood Count 3.19, Mean Corpuscular Volume 86.8, Mean Corpuscular Hemoglobin 29.2, Mean Corpuscular Hemoglobin Concent 33.6, Mean Platelet Volume 9.6, Neutrophils (%) (Auto) 55.9, Lymphocytes (%) (Auto) 30.3, Monocytes (%) (Auto) 9.4, Eosinophils (%) (Auto) 3.8, Basophils (%) (Auto) 0.3, Neutrophils # (Auto) 3.52, Lymphocytes # (Auto) 1.91, Monocytes # (Auto) 0.59, Eosinophils # (Auto) 0.24, Basophils # (Auto) 0.02 11/14/16 07:25 Test 11/14/16 07:25 White Blood Count 6.30 K/uL (4.8-10.8) Red Blood Count 3.19 M/uL (4.7-6.1) Hemoglobin 9.3 g/dL (14.0-18.0) Hematocrit 27.7 % (42-52) Mean Corpuscular Volume 86.8 fL (80-100) Mean Corpuscular Hemoglobin 29.2 pg (25-34) Mean Corpuscular Hemoglobin Concent 33.6 g/dl (32-36) Platelet Count 170 K/uL (130-400) Mean Platelet Volume 9.6 fL (7.4-10.4) Neutrophils (%) (Auto) 55.9 % Lymphocytes (%) (Auto) 30.3 % Monocytes (%) (Auto) 9.4 % Eosinophils (%) (Auto) 3.8 % Basophils (%) (Auto) 0.3 % Neutrophils # (Auto) 3.52 K/uL (1.4-6.5) Lymphocytes # (Auto) 1.91 K/uL (1.2-3.4) Monocytes # (Auto) 0.59 K/uL (0.11-0.59) Eosinophils # (Auto) 0.24 K/uL (0-0.5) Basophils # (Auto) 0.02 K/uL (0-0.2) RDW Standard Deviation 49.2 fL (36.4-46.3) RDW Coefficient of Variation 15.7 % (11.5-14.5) Immature Granulocyte % (Auto) 0.3 % Immature Granulocyte # (Auto) 0.02 K/uL (0.00-0.02) Anion Gap 8.0 mmol/L (3-11) Est Creatinine Clear Calc Drug Dose 135.4 ml/min Estimated GFR () 118.1 Estimated GFR (Non- 101.9 BUN/Creatinine Ratio 10.0 (10-20) Calcium Level 8.6 mg/dl (8.5-10.1) Total Bilirubin 0.4 mg/dl (0.2-1) Aspartate Amino Transf (AST/SGOT) 22 U/L (15-37) Alanine Aminotransferase (ALT/SGPT) 20 U/L (12-78) Alkaline Phosphatase 56 U/L (45-117) Total Protein 5.8 gm/dl (6.4-8.2) Albumin 2.9 gm/dl (3.4-5.0) Globulin 2.9 gm/dl (2.5-4.0) Albumin/Globulin Ratio 1.0 (0.9-2) Assessment and Plan 76-year-old male with past medical history of 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 He was found to have large blood clots per rectum while in the ER. Hemoglobin had dropped to 7.2 yesterday and he was transfused 1 unit of packed red blood cells. GI bleeding: Secondary to duodenal ulcer - GI consult - appreciate input - Continue Protonix drip - EGD - Possible type 3 hiatal hernia. - Antral deformity and mildly boot shaped stomach that may suggest delay in gastric emptying. - Large cratered duodenal ulcer with flat pigmented spot. - Monitor hemoglobin twice daily - Advance diet as tolerated Acute blood loss anemia: Status post 1 unit PRBC transfusion Hemoglobin had dropped to 7.2 after which he was transfused - Hemoglobin today at 9.3 - Monitor hemoglobin twice daily Tachycardia: resolved Likely secondary to anemia UTI: - UA: Large leuk esterase, 2+ bacteria, positive nitrite - Urine culture: proteus and MRSA - Levaquin switched to PO bactrim and Ceftin Asthma - Continue inhalers / nebulizers as needed VTE: SCDs CODE STATUS: DNR Disposition: transfer to Med/surg Discharge planning: halfway facility Reviewed: Pt Seen/Exam by Me History Pt would like his chair brought over from [facility] if possible. Tolerating PO and would like a more regular diet when possible. No abd pain, n/v/d. No SOB or chest pain. Agree with HPI/ROS as noted. General Appearance: WD/WN, no apparent distress Respiratory: normal breath sounds, no respiratory distress Cardiovascular: normal peripheral pulses, regular rate, rhythm Gastrointestinal: non tender, soft Extremities: non-tender, no pedal edema Neurologic/Psychiatric: alert, oriented x 3 Skin Characteristics: normal color, warm/dry Assessment/Plan Resident Physician Supervision Note: I discussed the case with the resident and agree with the findings and plan as documented in the note. Any exceptions or clarifications are listed here: Agree with HPI/ROS as noted EGD noted for duodenal ulcer and grade III hiatal hernia ADAT Protonix gtt x3 days s/p 2 units PRBC with improved Hb, baseline appears to be around 13-14 U cx + for proteus with some abx resistance. Start bactrim and monitor Documented By: Sis Truong
[2016-11-14] MEDS: SULFA/TRIMETH SUSP 800/160MG 20ML UDC PO SCH ×2 (16:05→21:02)
[2016-11-14] MEDS: CEFUROXIME AXETIL 250 MG TAB PO SCH ×2 (16:05→21:02)
[2016-11-14 20:06] LABS: HEMATOCRIT 29.6 % (42-52)
[2016-11-15 00:32] VITALS: BP 103/65; PULSE 102; TEMP 37.2; O2SAT 99
[2016-11-15] MEDS: ARTIFICIAL TEARS OP SOLN OPB SCH ×10 (02:00→12:05)
[2016-11-15] MEDS: PANTOprazole INJ 40 MG in DEXTROSE 5% 100ML IV SCH ×3 (02:00→12:00)
[2016-11-15] MEDS: SODIUM CHLOR 0.45% + 20MEQ KCL 1,000 ML IV SCH (06:32)
[2016-11-15 06:42] LABS: MEAN CORPUSCULAR HEMOGLOBIN 29.2 pg (25-34); MEAN CORPUSCULAR HGB CONC 33.6 g/dl (32-36); MEAN PLATELET VOLUME 9.8 fL (7.4-10.4); PLATELET COUNT 185 K/uL (130-400); RED BLOOD COUNT 3.22 M/uL (4.7-6.1)
[2016-11-15 07:09] VITALS: PULSE 105; O2SAT 97
[2016-11-15] MEDS: ALBUTEROL 0.083% NEBU SOLN 3 ML VIAL INH SCH (07:09)
[2016-11-15 07:18] VITALS: BP 113/65; PULSE 101; TEMP 36.8; O2SAT 97
[2016-11-15 07:25] LABS: BUN/CREATININE RATIO 6.2 (10-20); CALCIUM 8.4 mg/dl (8.5-10.1); CREATININE 0.66 mg/dl (0.60-1.40); POTASSIUM 4.4 mmol/L (3.5-5.1)
[2016-11-15] MEDS ORDERED: SULF1SUS4 PO (09:33)
[2016-11-15] MEDS ORDERED: CFT250 PO (09:33)
[2016-11-15] MEDS ORDERED: PANT40TA PO (09:33)
[2016-11-15] MEDS: BOOST BREEZE NUTRITION DRINK 1 BOX PO SCH (09:54)
[2016-11-15] MEDS: PrednisoLONE ACET 1% OP SUSP 5 ML BTL OPL SCH (09:54)
[2016-11-15] MEDS: SULFA/TRIMETH SUSP 800/160MG 20ML UDC PO SCH (09:55)
[2016-11-15] MEDS: CEFUROXIME AXETIL 250 MG TAB PO SCH (09:55)
[2016-11-15] MEDS: SIMETHICONE 40 MG/0.6 ML 30ML PO SCH (09:55)
--- NOTE | 2016-11-15 10:48 | Discharge Instructions ---
Discharge Instructions Date of Service Nov 15, 2016. Admission Reason for Admission: Ams, Rectal Bleeding Discharge Discharge Diagnosis / Problem: Upper GIB, UTI Discharge Goals Goal(s): Decrease discomfort, Improve function, Increase independence Activity Recommendations Activity Level: OOB In Chair, Assistance Required . Additional Information Patient informed of condition: Yes Advance Directives: Yes DNR: Yes Level of Care: Skilled Communicable Disease: Yes Prognosis: Improving Jackson Catheter: No Instructions / Follow-Up Instructions / Follow-Up PCP in 3-5 days Current Hospital Diet Patient's current hospital diet: Full Liquid Diet Discharge Diet Recommended Diet: Regular Diet Procedures Procedures Performed: EGD Pending Studies Studies pending at discharge: no Medical Emergencies . Who to Call and When: Medical Emergencies: If at any time you feel your situation is an emergency, please call 911 immediately. . Non-Emergent Contact Non-Emergency issues call your: Primary Care Provider . . "Provider Documentation" section prepared by Sis Truong. Core Measure Problem Core Measures: None
--- NOTE | 2016-11-15 10:50 | Discharge Summary ---
Discharge Summary Date of Service Nov 15, 2016. Discharge Summary Admission Date: Nov 11, 2016 at 23:53 Discharge Date: Nov 15, 2016 Discharge Disposition: [facility] facility Principal Diagnosis: Upper GIB, UTI Problems/Secondary Diagnoses: Incomplete quadriplegia s/p GBS HTN Asthma GERD PVD Hx of trach with reversal leading to swallowing issues Immunizations: Have You Had Influenza Vaccine: Yes History of Tetanus Vaccine?: Unknown Tetanus Immunization Date: Aug 03, 2007 History of Pneumococcal: Yes Pneumococcal Date: May 04, 2008 History of Hepatitis B Vaccine: Unknown Medication Reconciliation New Medications: Pantoprazole Sodium (Protonix) 40 Mg Tab 40 MG PO BID, #30 TAB Cefuroxime Axetil (Cefuroxime Axetil) 250 Mg Tab 250 MG PO Q12@0900,2100 for 7 Days, TAB Sulfa/Trimethoprim (Bactrim 200/40MG 5ML) Susp 20 ML PO Q12@0900,2100 for 7 Days Continued Medications: Acetaminophen (Tylenol) 325 Mg Tab 650 MG PO Q6 PRN for MILD PAIN, TAB Acetaminophen (Tylenol) 325 Mg Tab 650 MG PO Q6 PRN for Fever, TAB Albuterol Sulf (Proventil 0.083% 2.5MG/3ML) 2.5 Mg/3 Ml Nebu 2.5 MG INH BID, EA Albuterol Sulf (Proventil 0.083% 2.5MG/3ML) 2.5 Mg/3 Ml Nebu 2.5 MG INH Q6 PRN for Shortness of Breath, EA Artificial Tear Solution (Genteal Tears 0.1-0.3 %) 1 Kaylene Kaylene 1 DROP OPB Q2H Bisacodyl (Bisacodyl Laxative) 10 Mg Sup 10 MG RE DIRECTED NO BM ON DAY 3 Eyelid Cleansers (Ocusoft Lid Scrub) 1 Pad Pad 1 APPLN OPB DAILY GENTLY SCRUB BOTH EYELIDS DAILY @1030 Ketoconazole (Topical) (Ketoconazole) 2 % Sha 1 APPLN TOP MWF for 30 Days, #120 ML 1 Refill APPLY TO SCALP Magnesium Hydroxide (Milk Of Magnesia) 30 Ml Susp 30 ML PO DIRECTED, ML NO BM ON DAY 3 Menthol-Zinc Oxide (Gold Cisneros) 1 Pow Pow 1 APPLN TOP BID APPLY TOPICALLY TO SKIN LESION ON ABDOMEN, RIGHT UPPER QUADRANT BID Miconazole Nitrate (Topical) (Lotrimin Af) 2 % Aer 1 APPLN TP BID APPLY TOPICALLY TO BILATERAL FEET Miconazole Nitrate (Topical) (Athletes Foot Powder Spra) 2 % Aer 1 APPLN TOP BID APPLY TO BILATERAL FEET Prednisolone Acetate (Ophth) (Pred Forte 1% Oph) 1 % [place] 1 OPL DAILY Promethazine Hcl (Phenergan) 25 Mg Tab 25 MG PO Q6H PRN for Nausea, TAB Prune Juice (Prune Juice ) Liqd 8 OZ PO DAILY PRN for NO BM IN 2 DAYS Simethicone (Cvs Gas Relief) 80 Mg Chw 80 MG PO BID Skin Protectants, Misc. (Aloe [place] 2-N-1 Protecti) 1 Oin Oin 1 APPL TOP BID Sodium Fluoride (Dental) (Prevident 5000 Dry Mouth) 1.1 % Pst Unknown Dose BID Sodium Phosphate/Biphosphate (Fleet Enema) Rhiannon 1 EA SD DAILY PRN for NO BM ON DAY 4, BTL [BacitraciN OPH OINT] () 1 APPLN OPL HS APPLY 1/2" RIBBON TOPICALLY TO LEFT EYE AT BEDTIME [Skin Prep [place]] () 1 SPRAY TOP DIRECTED Discharge Exam Pt has had no further AMS or unresponsive episodes since arrival. No abd pain, n/v/d. He has been tolerating PO without issue, although his appetite is decreased. Pt denies fever, SOB, chest pain, LE pain or swelling. ROS as noted above, otherwise neg. 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 He was found to have large blood clots per rectum while in the ER. Hemoglobin had dropped to 7.2 yesterday and he was transfused 1 unit of packed red blood cells. GI bleeding: Secondary to duodenal ulcer, conservative management - GI consult - appreciate input - Continue Protonix drip - EGD - Possible type 3 hiatal hernia. - Antral deformity and mildly boot shaped stomach that may suggest delay in gastric emptying. - Large cratered duodenal ulcer with flat pigmented spot. Tolerating diet Finished 3 days of protonix gtt, plan for PO BID x1 month H/H in 1 week Acute blood loss anemia: Status post 1 unit PRBC transfusion Hemoglobin had dropped to 7.2 after which he was transfused - Hemoglobin today at 9.4 Tachycardia: resolved Likely secondary to anemia UTI: - UA: Large leuk esterase, 2+ bacteria, positive nitrite - Urine culture: proteus and MRSA - Levaquin switched to PO bactrim and Ceftin, finish course as outpt -Possibly contributed to AMS/unresponsiveness Asthma - Continue inhalers / nebulizers as needed Total Time Spent: Greater than 30 minutes This includes examination of the patient, discharge planning, medication reconciliation, and communication with other providers. Discharge Instructions Please refer to the electronic Patient Visit Report (Discharge Instructions) for additional information. Follow-Up PCP in 3-5 days Additional Copies To [place], [place]
[2016-11-15 12:51] VITALS: BP 113/65; PULSE 101; TEMP 36.8; O2SAT 97
[2017-01-15] MEDS ORDERED: PANT40TA PO (08:00)
[2017-01-15] MEDS ORDERED: SIME80CH PO (08:00)
== END 2016-11-15 13:19 | DRG 377 ==
LOC: ENRESERVDT → ENRESERVTM → EDBD 21:59 → C.EDB 22:00 → C.2T 23:53 → C.MS2W 11-14 15:13
PROVIDERS: ADMIT Internal Medicine; ATTEND Family Medicine
PROC: 0DJ08ZZ Inspection of Upper Intestinal Tract, Via Natural or Artificial Opening Endoscopic (ICD-10-PCS; principal; 2016-11-12 10:36)
DX: K26.4 Chronic or unspecified duodenal ulcer with hemorrhage (principal); G82.50 Quadriplegia, unspecified; D62 Acute posthemorrhagic anemia; N39.0 Urinary tract infection, site not specified; G61.0 Guillain-Barre syndrome; I10 Essential (primary) hypertension; K21.9 Gastro-esophageal reflux disease without esophagitis; J44.9 Chronic obstructive pulmonary disease, unspecified; I73.9 Peripheral vascular disease, unspecified; Z87.19 Personal history of other diseases of the digestive system; Z87.891 Personal history of nicotine dependence; I95.9 Hypotension, unspecified; Z66 Do not resuscitate; K44.9 Diaphragmatic hernia without obstruction or gangrene; B96.4 Proteus (mirabilis) (morganii) as the cause of diseases classified elsewhere; B95.62 Methicillin resistant Staphylococcus aureus infection as the cause of diseases classified elsewhere; J38.02 Paralysis of vocal cords and larynx, bilateral; Z88.7 Allergy status to serum and vaccine; Z91.040 Latex allergy status; Z79.899 Other long term (current) drug therapy

== ENCOUNTER → 2016-12-16 | Outpatient (CLI) | payer OTHER, BC ==
[~2016-12-16] MED LIST changes: +ACET-1311 PO; -ALBU0.08 INH; -BACI1OIN22 OPL; -BCTO EXT; +CFT250 PO; +EYELPAD2 OPB; -GENTEAL EYE DROPS OP; -HYDR-5688 PO; +MENTPOW4 TOP; +MICO2AER TOP; +MICO2AER TP; -MULT-506 PO; +PANT40TA PO; +PRNJ PO; +PROM25TA9 PO; -SENSICARE TOP; +SIME80CH PO; +SIME80CH40 PO; +SODI1.1P; +SODIENE PR; +SULF1SUS4 PO; +[UNRECOGNIZED DRUG - CODE] OPB; -[UNRECOGNIZED DRUG - OTHER] OPB; +[UNRECOGNIZED DRUG - OTHER] OPL; -[UNRECOGNIZED DRUG - OTHER] PO; -[UNRECOGNIZED DRUG - OTHER] TOP
[2016-12-16 08:49] LABS: BASO % 0.5 %; BASO ABS # 0.02 K/uL (0-0.2); COMPLETE YES; EOS % 2.9 %; HEMATOCRIT 32.5 % (42-52); IG% 0.3 %; LYMPH % 41.7 %; LYMPH ABS # 1.59 K/uL (1.2-3.4); MEAN CELL VOLUME 83.8 fL (80-100); MEAN CORPUSCULAR HEMOGLOBIN 26.8 pg (25-34); MEAN PLATELET VOLUME 9.9 fL (7.4-10.4); MONO % 12.1 %; NEUT % 42.5 %; PLATELET COUNT 193 K/uL (130-400); RED BLOOD COUNT 3.88 M/uL (4.7-6.1); WHITE BLOOD COUNT 3.81 K/uL (4.8-10.8)
== END | disposition home or self-care (01) ==
LOC: C.LABCC 08:08
PROVIDERS: ATTEND Internal Medicine
DX: D50.0 Iron deficiency anemia secondary to blood loss (chronic) (principal)

== ENCOUNTER → 2017-01-19 | Day surgery (SDC) | payer OTHER, BC ==
[2017-01-15 08:01] VITALS: BMI 28.0
[~2017-01-19] VITALS: Ht 180.3 cm; Wt 92.0 kg
[~2017-01-19] MED LIST changes: -CFT250 PO; +ESMOLOL HCL 10 MG/ML 10 ML VIAL ONE; -KETO2SHA TOP; +LIDOCAINE HCL 2% 2 ML VIAL (20MG/ML) ONE; -MENTPOW4 TOP; -MICO2AER TOP; -MICO2AER TP; +PROPOFOL IV EMULSION 10 MG/ML 20 ML VIAL IV ONE; -SIME80CH40 PO; -SKIN PREP SPRAY TOP; -SKINOIN27 TOP; -SODI1.1P; +SODIUM CHLORIDE 0.9% 500ML 500 ML IV ONE; -SULF1SUS4 PO
[2017-01-19 10:03] VITALS: Ht 180.3 cm; Wt 92.0 kg
--- NOTE | 2017-01-19 10:28 | Endo History and Physical ---
History & Physical Date of Service: January 19, 2017. Chief Complaint: follow up duodenal ulcers Referring Physician: DR. JORGENSEN History of Present Illness f/u ulcer Past Medical History Arthritis, Asthma, Depression Past Surgical History Hx Cardiac Surgery: No Hx Internal Defibrillator: No Hx Pacemaker: No Hx Abdominal Surgery: No Hx of Implantable Prosthesis: No Hx Cancer Surgery: No Hx Thoracic Surgery: No Hx Orthopedic: Yes (LT HIP SURGERY +RADIATION) Hx Urinary Tract Surgery: No Social History Smoking Status: Unknown if Ever Smoked Hx Substance Use: No Hx Alcohol Use: Yes ("REMOTE ALCOHOL USE") Allergies Coded Allergies: Influenza Vaccines (Verified Adverse Reaction, Severe, GUILLIAN-BARRE SYNDROME, 01/19/17) Latex1 -Allergic Contact Dermititis (Unverified Adverse Reaction, Mild, RASH, 01/19/17) Itching Current Medications Reported Home Medications Medications Dose Route/Sig Max Daily Dose Days Date Category Dose Instructions Protonix (Pantoprazole Sodium) 40 Mg Tab 40 Mg PO BID 01/15/17 Reported Gas-X (Simethicone) 80 Mg Chw 1 Tab PO BID 01/15/17 Reported Ocusoft Lid Scrub (Eyelid Cleansers) 1 Pad Pad 1 Appln OPB DAILY 11/11/16 Reported GENTLY SCRUB BOTH EYELIDS DAILY @1030 Fleet Enema (Sodium Phosphate/Biphosphate) Rhiannon 1 Ea RI DAILY PRN 11/11/16 Reported Prune Juice (Prune) Liqd 8 Oz PO DAILY PRN 11/11/16 Reported Proventil 0.083% 2.5MG/3ML (Albuterol Sulf) 2.5 Mg/3 Ml Nebu 2.5 Mg INH Q6 PRN 11/11/16 Reported Tylenol (Acetaminophen) 325 Mg Tab 650 Mg PO Q6 PRN 11/11/16 Reported Tylenol (Acetaminophen) 325 Mg Tab 650 Mg PO Q6 PRN 11/11/16 Reported Phenergan (Promethazine HCl) 25 Mg Tab 25 Mg PO Q6H PRN 11/11/16 Reported Genteal Tears 0.1-0.3 % (Artificial Tear Solution) 1 Kaylene Kaylene 1 Drop OPB Q2H 11/11/16 Reported [BacitraciN OPH OINT] 1 Appln OPL HS 11/11/16 Reported APPLY 1/2" RIBBON TOPICALLY TO LEFT EYE AT BEDTIME Milk Of Magnesia (Magnesium Hydroxide) 30 Ml Susp 30 Ml PO DIRECTED 09/13/14 Reported NO BM ON DAY 3 Bisacodyl Laxative (Bisacodyl) 10 Mg Sup 10 Mg RE DIRECTED 09/13/14 Reported NO BM ON DAY 3 Pred Forte 1% Oph (Prednisolone Acetate (Ophth)) 1 % Jessica 1 OPL DAILY 07/26/12 Reported Proventil 0.083% 2.5MG/3ML (Albuterol Sulf) 2.5 Mg/3 Ml Nebu 2.5 Mg INH BID 07/26/12 Reported Vital Signs Weight (Kilograms): 91.95 Height (Feet): 5 Height (Inches): 11 Date Time Temp Pulse Resp B/P Pulse Ox O2 Delivery O2 Flow Rate FiO2 01/19/17 10:11 36.5 99 20 133/84 96 Room Air Physical Exam General Appearance: no apparent distress Respiratory/Chest: Respiratory effort: no dyspnea Auscultation: breath sounds normal Cardiovascular: Heart Auscultation: RRR Abdomen: Inspection & Palpation: soft Assessment and Plan H/o DU - EGD
--- NOTE | 2017-01-19 10:49 | GI REPORT ---
Procedure Date: 01/19/2017 10:32 AM Procedure: Upper GI endoscopy Indications: Follow-up of duodenal ulcer presented as actue GIB in October 2016; Hp stool ag neg at that time Medicines: See the Anesthesia note for documentation of the administered medications Complications: No immediate complications. Estimated Blood Loss: Estimated blood loss: none. Procedure: Pre-Anesthesia Assessment: - ASA Grade Assessment: III - A patient with severe systemic disease. After obtaining informed consent, the endoscope was passed under direct vision. Throughout the procedure, the patient's blood pressure, pulse, and oxygen saturations were monitored continuously. The Scope was introduced through the mouth, and advanced to the second part of duodenum. The upper GI endoscopy was accomplished without difficulty. The patient tolerated the procedure well. Findings: The examined esophagus was normal. I don't think that the patient has a para esophageal hernia. The pylorus and pre-pyloric antrum were mildly deformed. The duodenal bulb was foreshortened. The previously seen ulcer has completely healed. The duodenum was otherwise normal. Impression: - Prior ulcer has healed. Recommendation: Decrease Protonix to once daily, and continue usp. - Discharge patient to home. Follow up with referring. Spencer Velez M.D. Spencer Velez MD 01/19/2017 10:49:11 AM This report has been signed electronically. Note Initiated On: 01/19/2017 10:32 AM I attest to the content of the Intraoperative Record and orders documented therein, exceptions below
--- NOTE | 2017-01-19 10:50 | Discharge Instructions ---
Endoscopy Patient Instructions Date / Procedure(s) Performed January 19, 2017. EGD Allergy Information Coded Allergies: Influenza Vaccines (Verified Adverse Reaction, Severe, GUILLIAN-BARRE SYNDROME, 01/19/17) Latex1 -Allergic Contact Dermititis (Unverified Adverse Reaction, Mild, RASH, 01/19/17) Itching Discharge Date / Findings January 19, 2017. Healed duodenal ulcer Medication Instructions Decrease Protonix to once daily and continue [facility] Provider Instructions Activity Restrictions - No exercising or heavy lifting for 24 hours. - Do not drink alcohol the day of the procedure. - Do not drive a car or operate machinery until the day after the procedure. - Do not make any important decisions or sign important papers in 24 hours after the procedure. Following Day: - Return to full activity which may include returning to work/school. Diet Start your diet with liquids and light foods (jello, soup, juice, toast). Then eat your usual diet if not nauseated. Treatment For Common After Affects For mild abdominal pain, bloating, or excessive gas: - Rest - Eat lightly - Lie on right side Follow-Up Information Follow-up with DR. JORGENSEN as scheduled Anesthesia Information What You Should Know You have had a procedure that required some medicine to reduce anxiety and discomfort. This treatment is called moderate sedation. After receiving the treatment, you may be sleepy, but you will be able to breathe on your own. The effects of the treatment may last for several hours. Follow these instructions along with Activity/Diet recommendations noted above: * Do NOT do anything where dizziness or clumsiness would be dangerous. * Rest quietly at home today, then you can be up and about tomorrow. * Have a responsible person stay with you the rest of today. * You may have had an I.V. today. If so, you may take the dressing off later today. Recommendations Call your doctor if: * Trouble breathing * Continuous vomiting for more than 24 hours * Temperature above 101 degrees * Severe abdominal pain or bloating * Pain not relieved by pain medicine ordered * There is increased drainage or redness from any incision * A large amount of rectal bleeding greater than 2-3 tablespoons. (If you had a polyp/s removed or have hemorrhoids, a small amount of blood - from the rectum is to be expected.) * You have any unanswered questions or concerns. IN THE EVENT OF A SERIOUS EMERGENCY, GO TO THE NEAREST EMERGENCY ROOM Your discharge instructions were prepared by provider Spencer Houston. Patient Instructions Signature Page [facility] Patient (or Guardian) Signature/Date: I have read and understand the instructions given to me by my caregivers. Caregiver/RN/Doctor Signature/Date: The above-named patient and/or guardian has received patient instructions on this date. + Original Patient Signature Page (only) stays with chart. Please make copy for patient.
[2017-01-19 11:13] VITALS: BP 132/80; PULSE 86; O2SAT 98
--- NOTE | 2017-01-19 11:19 | Anesthesiology Progress Note ---
Anesthesia Post Op Note Date & Time January 19, 2017 at 11:19 Vital Signs Pain Intensity: 0 Vital Signs Past 12 Hours Date Time Temp Pulse Resp B/P Pulse Ox O2 Delivery O2 Flow Rate FiO2 01/19/17 11:13 86 18 132/80 98 Room Air 01/19/17 11:00 94 18 128/79 98 Room Air 01/19/17 10:45 105 12 124/80 98 Room Air 01/19/17 10:11 36.5 99 20 133/84 96 Room Air Notes Mental Status: alert / awake / arousable, participated in evaluation Pt Amnestic to Procedure: Yes Nausea / Vomiting: adequately controlled Pain: adequately controlled Airway Patency, RR, SpO2: stable & adequate BP & HR: stable & adequate Hydration State: stable & adequate Anesthetic Complications: no major complications apparent
== END | disposition home or self-care (01) ==
LOC: C.GI 09:33
PROVIDERS: ATTEND Internal Medicine Gastroenterology
DX: K26.4 Chronic or unspecified duodenal ulcer with hemorrhage (principal); K44.9 Diaphragmatic hernia without obstruction or gangrene; J45.909 Unspecified asthma, uncomplicated; M19.90 Unspecified osteoarthritis, unspecified site; F32.9 Major depressive disorder, single episode, unspecified

== ENCOUNTER → 2017-02-18 | Outpatient (CLI) | payer OTHER, BC ==
[~2017-02-18] MED LIST changes: -ESMOLOL HCL 10 MG/ML 10 ML VIAL ONE; -LIDOCAINE HCL 2% 2 ML VIAL (20MG/ML) ONE; +OPTIRAY 320 IV PRN; -PROPOFOL IV EMULSION 10 MG/ML 20 ML VIAL IV ONE; -SODIUM CHLORIDE 0.9% 500ML 500 ML IV ONE
--- NOTE | 2017-02-18 08:19 | DIAGNOSTIC IMAGING REPORT ---
CHEST CT WITH CONTRAST CT DOSE: 603.61 mGy.cm HISTORY: Lung nodule 11/21/16 0445 CREAK 0.69 TECHNIQUE: Multiaxial CT images of the chest were performed following the intravenous administration of contrast. COMPARISON: 01/18/2016 FINDINGS: Unchanging fibrotic change left pulmonary apex. Unchanging low suspicion micronodularity. No new or interval finding. No evidence for progressive process. Pneumobilia most likely a postoperative basis. IMPRESSION: Stable exam with no change from the prior study. Stable left pulmonary apex fibrotic change and pulmonary nodularity. No new or interval finding. Electronically signed by: Kade Medrano M.D. 02/18/2017 8:17 AM Dictated Date/Time: 02/18/2017 8:11 AM
== END | disposition home or self-care (01) ==
LOC: C.CTS 07:43
PROVIDERS: ATTEND Internal Medicine
DX: R91.1 Solitary pulmonary nodule (principal)

== ENCOUNTER → 2017-02-23 | Outpatient (CLI) | payer OTHER, BC ==
[~2017-02-23] MED LIST changes: -OPTIRAY 320 IV PRN
--- NOTE | 2017-03-02 11:32 | CODING QUERY MEDICAL NECESSITY ---
CQSUPPORTING DIAGNOSIS NEEDED A supporting diagnosis is required for the test/procedure performed on this patient in order for us to be reimbursed by the patient's insurance. Please provide a supporting diagnosis for the following test/procedure listed below next to the test name along with your signature. *If there is no additional diagnosis for this patient that would support the following test/procedure please document that below next to the test/procedure. Test(s)/Procedure(s) that require a supporting diagnosis: DOS 02/23/17 VITAMIN D TEST Provider Signature: Date: Thank you Sania Bot[facility] Once completed, please kindly fax back to [phone] For questions please call [phone]
== END ==
LOC: C.LABCC 08:47
PROVIDERS: ATTEND Internal Medicine
DX: G61.0 Guillain-Barre syndrome (principal); G82.50 Quadriplegia, unspecified; E55.9 Vitamin D deficiency, unspecified

== ENCOUNTER → 2017-03-11 | Outpatient (CLI) | payer OTHER, BC ==
[2017-03-11 14:46] LABS: URINE APPEARANCE CLEAR (CLEAR); URINE BILIRUBIN NEG (NEG); URINE COLOR YELLOW; URINE EPITHELIAL CELL AUTO 0-5 /lpf (0-5); URINE NITRITE NEG (NEG); URINE PH 7.5 (4.5-7.5); URINE SPECIFIC GRAVITY 1.024 (1.000-1.030); UROBILINOGEN NEG (NEG)
[2017-03-11 15:03] LABS: MANUAL MICROSCOPIC REQUIRED? NO; REVIEW REQ? NO
== END ==
LOC: C.LABCC 12:19
PROVIDERS: ATTEND Internal Medicine
DX: R39.15 Urgency of urination (principal); R32 Unspecified urinary incontinence

== ENCOUNTER → 2017-04-28 | Outpatient (CLI) | payer OTHER, BC ==
[2017-04-29 09:03] LABS: URINE APPEARANCE CLEAR (CLEAR); URINE BILIRUBIN NEG (NEG); URINE COLOR YELLOW; URINE NITRITE POS (NEG); URINE PH 6.5 (4.5-7.5); URINE SPECIFIC GRAVITY 1.025 (1.000-1.030); UROBILINOGEN NEG (NEG)
[2017-04-29 09:09] LABS: MANUAL MICROSCOPIC REQUIRED? NO; REVIEW REQ? YES
== END ==
LOC: C.LABCC 11:30
PROVIDERS: ATTEND Internal Medicine
DX: R35.0 Frequency of micturition (principal); R30.0 Dysuria

== ENCOUNTER → 2017-05-27 | Outpatient (CLI) | payer OTHER, BC | LOC: C.LABCC 08:59 | PROVIDERS: ATTEND Internal Medicine | DX: E55.9 Vitamin D deficiency, unspecified (principal) ==

== ENCOUNTER → 2017-06-09 | Outpatient (CLI) | payer OTHER, BC ==
[2017-06-09 09:31] LABS: URINE APPEARANCE CLEAR (CLEAR); URINE BILIRUBIN NEG (NEG); URINE COLOR YELLOW; URINE EPITHELIAL CELL AUTO 0-5 /lpf (0-5); URINE NITRITE POS (NEG); URINE SPECIFIC GRAVITY 1.024 (1.000-1.030); UROBILINOGEN NEG (NEG)
[2017-06-09 09:36] LABS: MANUAL MICROSCOPIC REQUIRED? NO; REVIEW REQ? NO
== END ==
LOC: C.LABCC 08:49
PROVIDERS: ATTEND Internal Medicine
DX: R35.0 Frequency of micturition (principal); R39.15 Urgency of urination

== ENCOUNTER → 2017-07-28 | Outpatient (CLI) | payer OTHER, BC | LOC: C.LABCC 08:06 | PROVIDERS: ATTEND Internal Medicine | DX: E55.9 Vitamin D deficiency, unspecified (principal) ==

== ENCOUNTER → 2017-12-14 | Outpatient (CLI) | payer OTHER, BC ==
[2017-12-14 08:14] LABS: BASO % 0.3 %; BASO ABS # 0.02 K/uL (0-0.2); EOS % 2.4 %; EOS ABS # 0.15 K/uL (0-0.5); HEMATOCRIT 38.2 % (42-52); HEMOGLOBIN 11.9 g/dL (14.0-18.0); IG# 0.01 K/uL (0.00-0.02); LYMPH % 36.2 %; LYMPH ABS # 2.22 K/uL (1.2-3.4); MEAN CELL VOLUME 72.3 fL (80-100); MEAN CORPUSCULAR HEMOGLOBIN 22.5 pg (25-34); MEAN CORPUSCULAR HGB CONC 31.2 g/dl (32-36); MEAN PLATELET VOLUME 9.7 fL (7.4-10.4); MONO % 10.7 %; MONO ABS # 0.66 K/uL (0.11-0.59); NEUT % 50.2 %; NEUT ABS # 3.08 K/uL (1.4-6.5); PLATELET COUNT 172 K/uL (130-400); RED CELL DISTRIBUTION WIDTH CV 18.3 % (11.5-14.5); RED CELL DISTRIBUTION WIDTH SD 48.2 fL (36.4-46.3); WHITE BLOOD COUNT 6.14 K/uL (4.8-10.8)
[2017-12-14 08:24] LABS: ALBUMIN 3.6 gm/dl (3.4-5.0); ALT/SGPT 20 U/L (12-78); AST/SGOT 19 U/L (15-37); BLOOD UREA NITROGEN 17 mg/dl (7-18); CALCIUM 8.8 mg/dl (8.5-10.1); CARBON DIOXIDE 27 mmol/L (21-32); CREATININE 0.73 mg/dl (0.60-1.40); GLUCOSE 90 mg/dl (70-99); POTASSIUM 4.2 mmol/L (3.5-5.1); SODIUM 138 mmol/L (136-145)
[2017-12-14 08:26] LABS: ALKALINE PHOSPHATASE 76 U/L (45-117); TOTAL PROTEIN 7.1 gm/dl (6.4-8.2)
== END ==
LOC: C.LABCC 07:58
PROVIDERS: ATTEND Internal Medicine
DX: I10 Essential (primary) hypertension (principal); K21.9 Gastro-esophageal reflux disease without esophagitis; E55.9 Vitamin D deficiency, unspecified

== ENCOUNTER → 2018-04-13 | Outpatient (CLI) | payer OTHER, BC | END | disposition home or self-care (01) | LOC: C.LABCC 22:14 | PROVIDERS: ATTEND Internal Medicine | DX: R35.0 Frequency of micturition (principal) ==